=== PATIENT | male | born 1950 | race Caucasian/White ===

== ENCOUNTER 2018-06-26 12:33 | Inpatient (IN) ==
--- NOTE | 2018-06-26 13:50 | Emergency Department Note ---
ED Provider Note CHIEF COMPLAINT: Returning for admission HISTORY OF PRESENTING ILLNESS: This is a 67-year-old male who presents to the emergency department by private vehicle for admission. Patient was seen yesterday in the emergency department and was found to have lung mass and bilateral pulmonary emboli, he was recommended to be admitted at that time, ho wever he was unable to stay and reported that he would return to the emergency department for admission today, which he now does. He was treated with a dose of Lovenox yesterday prior to discharge. He denies any dizziness, syncope, chest pain, shortness of breath, hemoptysis, fevers or chills, abdominal pain, nausea or vomiting, urinary complaints, or unusual rash. He denies any abnormal bleeding or bruising. REVIEW OF SYSTEMS: A complete 10 point review of systems was reviewed with the patient with pertinent positives and negatives as per history of present illness. All else were negative. PAST MEDICAL HISTORY: CAD with [place] x2 and stent placement, hypertension, hyperlipidemia, emphysema, lung cancer, VATS with right upper lobectomy SOCIAL HISTORY: Lives at home, he is a current everyday smoker ALLERGIES: No known allergies PHYSICAL EXAM: CONSTITUTIONAL: Pleasant and cooperative. No acute distress. Well appearing and well nourished. HEENT: Normocephalic, atraumatic. PERRL, EOMI. Pharynx normal. NECK: Supple, full active range of motion without discomfort. RESPIRATORY: Diminished throughout with scant expiratory wheezes, otherwise clear to auscultation bilaterally with no crackles, rhonchi or stridor. Equal expansion bilaterally. CARDIOVASCULAR: Regular rate and rhythm with no murmurs, rubs or gallops. Normal peripheral perfusion. No edema. GASTROINTESTINAL: Soft, nontender, nondistended. No palpable masses or HSM. Bowel sounds present in all quadrants. MUSCULOSKELETAL: No leg pain or swelling. Negative Homans bilaterally. Full range of motion of all joints without discomfort. INTEGUMENTARY: No rash or other significant dermatologic conditions noted. NEUROLOGIC: Alert and oriented X 4 with normal affect. Normal strength and sensation in all 4 extremities. Normal speech. Normal gait observed. ED COURSE AND MEDICAL DECISION MAKING: CC: Patient presenting for admission DIFFERENTIAL DIAGNOSIS: Includes, but not limited to lung mass, PE, need for an ticoagulation INTERPRETATION OF LABS: No leukocytosis, mild anemia, normal platelets, no significant electrolyte abnormalities, normal renal function, coagulation factors within normal limits IMAGING: CTA CHEST IMPRESSION: 1. No central pulmonary embolus is identified. 2. There is trace nonocclusive thrombus identified within segmental branches of the right and left upper lobe pulmonary arteries. This is age indeterminant and may be chronic. 3. Emphysema and postoperative change from previous right-sided pulmonary resection. 4. There is an approximately 5.5 cm right apical mass lesion. This extends through the pleura, and causes erosive destruction of the right second rib, the right transverse processes of T1 and T2, and also invades the T1 and T2 vertebral bodies. This is consistent with a Pancoast tumor. 5. Additional small osteolytic metastatic lesions are seen within the bodies of T1 and T2. 6. There is approximately 6 x 3.5 cm left perihilar mass lesion which is also consistent with neoplasm. 7. There is diffuse peribronchial thickening with mucus plugging in the lower lobes. Correlate clinically for evidence of bronchitis/reactive airway disease. 8. There is extensive micronodular change seen at the right lung base. This could present metastatic disease versus an infectious/inflammatory pneumonitis. 9. There is no evidence of acute or pathologic fracture involving the thoracic spine. 10. There are are mildly enlarged mediastinal and right supraclavicular lymph nodes. Metastatic disease is not excluded. 11. Additional findings as above. MEDICATION RECONCILIATION: I attest that I have personally reviewed the patient's current medication list. INITIAL VITAL SIGNS REVIEW: I reviewed the patient's initial vital signs and interpret them as follows: T: Afebrile; BP: Normotensive; HR: Mildly tachycardic; RR: Within normal limit; Pulse Ox: Within normal limits on room air. Blood pressure screening: The patient was found to have normal blood pressure on screening and does not require follow-up for repeat blood pressure check. MDM SUMMARY: Patient was evaluated at bedside, history and physical exam performed. Patient is alert and oriented, no acute distress, resting calmly in stretcher. Exam is grossly unchanged from yesterday by my assessment. The patient has no complaints of chest pain or shortness of breath. He is hemodynamically stable. Orders were placed at bedside for labs, heparin drip standard with bolus to continue treatment for pulmonary emboli. Patient discussed with Dr. Ross, who agrees with my assessment, plan, and disposition. I spoke with Dr. Shaw, [facility] Hospitalist, who agrees to admit the patient. He will place consults. Patient was stable at time of admission. The chart was completed utilizing [employer] Speech voice recognition software. Grammatical errors, random word insertions, pronoun errors, and incomplete sentences are an occasional consequence of this system due to software limitat ions, ambient noise, and hardware issues. Any formal questions or concerns about the content, text, or information contained within the body of this dictation should be directly addressed to the nurse practitioner for clarification. Impression & Plan Lung mass, Bilateral pulmonary embolism Past Med/Surg History Social History Feels Safe at Home: Yes Smoking Status: Current every day smoker Results & Data Vital Signs Vital Signs - 24 hr 06/26/18 12:52 06/26/18 14:34 06/26/18 15:14 Temperature 36.7 C Temperature Source Oral Sepsis Recent Fever Within 48 Hours No Sepsis Action Taken by Nursing No Action Required Pulse Rate 100 H Pulse Rate [Left Finger] 89 87 Pulse Rhythm Regular Pulse Strength Normal Respiratory Rate 20 23 18 Respiratory Effort / Characteristics Non-Labored Spontaneous Non-Labored Non-Labored Respiratory Depth Normal Normal Normal Respiratory Pattern Regular Regular Regular Blood Pressure 105/69 Blood Pressure [Left Arm] 117/79 122/77 Blood Pressure Mean 81 Blood Pressure Mean [Left Arm] 91 92 Blood Pressure Position Sitting Blood Pressure Position [Left Arm] Pulse Oximetry 94 93 94 Oxygen Delivery Method Room Air Room Air Room Air 06/26/18 15:28 06/26/18 16:03 Temperature 36.7 C Temperature Source Oral Sepsis Recent Fever Within 48 Hours Sepsis Action Taken by Nursing Pulse Rate 83 Pulse Rate [Left Finger] 95 H Pulse Rhythm Pulse Strength Respiratory Rate 18 18 Respiratory Effort / Characteristics Respiratory Depth Respiratory Pattern Blood Pressure 122/77 Blood Pressure [Left Arm] 130/81 Blood Pressure Mean Blood Pressure Mean [Left Arm] 97 Blood Pressure Position Blood Pressure Position [Left Arm] Left Lateral Pulse Oximetry 94 92 Oxygen Delivery Method Room Air Room Air Laboratory Data Result diagrams: 06/26/18 14:26 06/26/18 14:26 Lab Results 06/26/18 06/26/18 06/26/18 Range/Units 14:26 14:26 14:26 WBC 6.59 (4.8-10.8) K/uL RBC 4.38 L (4.7-6.1) M/uL Hgb 13.9 L (14.0-18.0) g/dL Hct 39.5 L (42-52) % MCV 90.2 (80-100) fL MCH 31.7 (25-34) pg MCHC 35.2 (32-36) g/dL RDW Std Deviation 42.0 (36.4-46.3) fL RDW Coeff of Mark 12.8 (11.5-14.5) % Plt Count 172 (130-400) K/uL MPV 11.0 H (7.4-10.4) fL Immature Gran % (Auto) 0.3 % Neut % (Auto) 68.6 % Lymph % (Auto) 17.6 % Briscoe % (Auto) 9.9 % Eos % (Auto) 3.3 % Baso % (Auto) 0.3 % Immature Gran # (Auto) 0.02 (0.00-0.02) K/uL Neut # (Auto) 4.52 (1.4-6.5) K/uL Lymph # (Auto) 1.16 L (1.2-3.4) K/uL Briscoe # (Auto) 0.65 H (0.11-0.59) K/uL Eos # (Auto) 0.22 (0-0.5) K/uL Baso # (Auto) 0.02 (0-0.2) K/uL PT 10.7 (9.0-12.0) Seconds INR 1.0 (0.9-1.1) APTT 26.2 (21.0-31.0) Seconds PTT Ratio 1.0 Sodium 141 (136-145) mmol/L Potassium 3.9 (3.5-5.1) mmol/L Chloride 105 (98-107) mmol/L Carbon Dioxide 29 (21-32) mmol/L Anion Gap 7.0 (3-11) BUN 13 (7-18) mg/dl Creatinine 1.03 (0.6-1.4) mg/dl Est Cr Clr Drug Dosing 70.5 ml/min Est GFR ( Amer) 87.3 Est GFR (Non-Af Amer) 75.3 BUN/Creatinine Ratio 12.3 (10-20) Glucose 102 H (70-99) mg/dl Calcium 8.8 (8.5-10.1) mg/dl Administered Medications Nicotine (Nicoderm Cq) 21 mg TD QAM CAPRICE Stop: 07/26/18 13:59 Last Admin: 06/26/18 15:08 Dose: 21 mg Documented by: [id number] Discontinued Medications Heparin Sodium (Porcine) (Heparin Sodium (Porcine)) Confirm Administered Dose 10,000 units .ROUTE .STK-MED ONE Stop: 06/26/18 15:00 Last Admin: 06/26/18 15:09 Dose: Not Given Documented by: [id number] Heparin Sodium (Porcine) (Heparin Iv Bolus) Confirm Administered Dose 10,000 units .ROUTE .STK-MED ONE Stop: 06/26/18 15:02 Last Admin: 06/26/18 15:06 Dose: 6,000 units Documented by: [id number] Cosigned by: [id number] Heparin Sodium/Dextrose () 1 ea IV NOW STA; Protocol Stop: 06/26/18 13:50 Last Admin: 06/26/18 15:07 Dose: 1 ea Documented by: [id number] Heparin Sodium/Dextrose (Heparin Sodium/Dextrose) Confirm Administered Dose 25,000 units IV .STK-MED ONE Stop: 06/26/18 14:54 Last Admin: 06/26/18 15:05 Dose: 1,350 units Documented by: [id number] Cosigned by: [id number] Oxycodone HCl (Roxicodone Immediate Rel) 5 mg PO NOW STA Stop: 06/26/18 13:54 Last Admin: 06/26/18 15:08 Dose: 5 mg Documented by: [id number] Discharge Plan Visit Data *Final* Discharge Date/Time: 06/26/18 15:28 Chief Complaint: Referred by Doctor Stated Complaint: REFERRED BY MIN JUAREZ ED Provider: Melanie Ross ED Midlevel Provider: Catina Valdivia Discharge Problem: Lung mass, Bilateral pulmonary embolism Patient Disposition: Admitted As Inpatient Condition: Good Discharge Instructions Interventions: ED Discharge Assessment Last Done: 06/26/18 15:28
[2018-06-26] MEDS ORDERED: OXYCODONE HCL IR 5 MG TAB (IMMEDIATE RELEASE) PO STA (13:53)
--- NOTE | 2018-06-26 14:00 | History & Physical Report ---
Date of Service June 26, 2018 Assessment & Plan (1) Lung mass: 67 y/o M Hx Lung CA 2009, recurrence 2013 - RLLL resection/chemo/radiation, CAD ND x 2 2008, HTN, HLD, COPD, smoker. Presents with R shoulder pain which was somewhat pleuritic in nature. Due to his history, a CTA was obtained and demonstrated peripheral PEs, likely recurrence of CA with a Pancoast tumor, erosion into the 2nd rib, pleura and thoracic spine. the pt denies CP or SOB. Labs are unremarkable. 1) Lung mass - likely recurrence of CA with extensive invasion into surrounding structures. We will consult pulmonary and he will need follow-up with oncology. 2) PEs - placed on BID Lovenox - may hold PM dose for bronch pending discussion with pulm 3) CAD - no evidence of ACS - Cont ASA, Plavix, Carvedilol, Pravastatin 4) COPD - cont Breo, Albuterol - no evidence of exacerbation 5) Smoker - does not display interest in cessation Full code - full dose Lovenox Total time for this admit including review of labs, meds, imaging, records - discussion with pt and ER attending 38 min (2) Bilateral pulmonary embolism: History of Present Illness Chief Complaint: lung mass, PEs, shoulder pain Primary Care Provider: ABISAI SCHERER 67 y/o M Hx Lung CA 2009, recurrence 2013 - RLLL resection/chemo/radiation, CAD ND x 2 2008, HTN, HLD, COPD, smoker. Presents with R shoulder pain which was somewhat pleuritic in nature. Due to his history, a CTA was obtained and demonstrated peripheral PEs, likely recurrence of CA with a Pancoast tumor, erosion into the 2nd rib, pleura and thoracic spine. the pt denies CP or SOB. Labs are unremarkable. The pt had presented to the hospital one day prior and had requested DC to take care of his mother. He stated he would return today. He was provided with 1.5mg/kg of Lovenox and DCd. He has returned for admission and further workup. PMH: 1) Adenocarcinoma of R lung. Initial lesion 2009 R upper lobe - treated with resection?VATS RU lobectomy, chemo, radiation. Recurrence in RLL 2012 treated with chemo and radiation. 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 Family: Father due to cerebral aneurysm Mother is alive history of ND x 2 and DM Family Allergies Allergy/AdvReac Type Severity Reaction Status Date / Time No Known Allergies Allergy Unverified 06/25/18 12:05 Home Medications Home Medications Medication Instructions Recorded Confirmed Type citalopram 20 mg PO DAILY #0 11/06/09 06/25/18 History clopidogrel 75 mg PO DAILY #0 12/25/09 06/25/18 History carvedilol 6.25 mg PO BID #0 tab 02/28/12 06/25/18 History ondansetron HCl 8 mg PO BID PRN #0 tab 06/11/12 06/25/18 History albuterol sulfate 2 puff INHALATION TID #0 06/28/12 06/25/18 History fluticasone furoate-vilanterol 1 inh INHALATION DAILY 06/25/18 06/25/18 History [Breo Ellipta] pravastatin 20 mg PO DAILY 06/25/18 06/25/18 History Past Med/Surg History Social History Feels Safe at Home: Yes Smoking Status: Current every day smoker Review of Systems Review of Systems: Gen: Denies fevers, night sweats, rigors, fatigue, malaise, weight loss/gain ENT: Denies congestion, throat pain, hearing loss Eyes: Denies acute visual changes CV: Denies CP, palpitations Pulmonary: Denies SOB, cough, wheezing - pleuritic component to shoulder pain GI: Denies N/V, diarrhea, constipation Neuro: Denies acute or unilateral weakness, acute gait impairment, headache or acute visual changes Musculoskeletal: Denies joint pain, inflammation Endocrine: Denies polydipsia, polyuria Skin: Denies acute rashes or ulcers Physical Exam Physical Exam: General: AAO x 3, no distress ENT: No erythema or exudates, no thrush Eyes: MEGHANN, EOMI Head and neck: Normocephalic, atraumatic, No JVD, neck is supple. there may be some developing ptosis on the R. Chest/heart: Nontender, S1,2, RRR, no murmurs, no gallops Lungs: Poor air movement with slight end-expiratory wheezing Abdomen: Nontender, nondistended, BS+ Neuro: AAO x 3, speech is clear, no unilateral weakness or loss of sensation, coordination intact Musculoskeletal: No joint inflammation, muscle tenderness, FROM Skin: No acute rashes or ulcers Extremities: No clubbing, cyanosis, edema Results & Data Vital Signs (Past 12 Hours) Vital Signs Temp Pulse Resp BP Pulse Ox 06/26/18 12:52 98.1 F 100 H 20 105/69 94 Diagnostic Findings CTA: 1. No central pulmonary embolus is identified. 2. There is trace nonocclusive thrombus identified within segmental branches of the right and left upper lobe pulmonary arteries. This is age indeterminant and may be chronic. 3. Emphysema and postoperative change from previous right-sided pulmonary resection. 4. There is an approximately 5.5 cm right apical mass lesion. This extends through the pleura, and causes erosive destruction of the right second rib, the right transverse processes of T1 and T2, and also invades the T1 and T2 vertebral bodies. This is consistent with a Pancoast tumor. 5. Additional small osteolytic metastatic lesions are seen within the bodies of T1 and T2. 6. There is approximately 6 x 3.5 cm left perihilar mass lesion which is also consistent with neoplasm. 7. There is diffuse peribronchial thickening with mucus plugging in the lower lo bes. Correlate clinically for evidence of bronchitis/reactive airway disease. 8. There is extensive micronodular change seen at the right lung base. This could present metastatic disease versus an infectious/inflammatory pneumonitis. 9. There is no evidence of acute or pathologic fracture involving the thoracic spine. 10. There are are mildly enlarged mediastinal and right supraclavicular lymph nodes. Metastatic disease is not excluded. 11. Additional findings as above.
[2018-06-26 14:49] LABS: Basophils # (auto) 0.02 K/uL (0-0.2); Basophils % (auto) 0.3 %; Eosinophils # (auto) 0.22 K/uL (0-0.5); Eosinophils % (auto) 3.3 %; Hematocrit (blood only) 39.5 % (42-52); Hemoglobin 13.9 g/dL (14.0-18.0); Immature Granulocytes # (auto) 0.02 K/uL (0.00-0.02); Immature Granulocytes % (auto) 0.3 %; Lymphocytes # (auto) 1.16 K/uL (1.2-3.4); Lymphocytes % (auto) 17.6 %; Mean Corpuscular Hgb Conc 35.2 g/dL (32-36); Mean Corpuscular Volume 90.2 fL (80-100); Monocytes # (auto) 0.65 K/uL (0.11-0.59); Monocytes % (auto) 9.9 %; Neutrophils # (auto) 4.52 K/uL (1.4-6.5); Neutrophils % (auto) 68.6 %; Platelet Count 172 K/uL (130-400); RDW Coefficient of Variation 12.8 % (11.5-14.5); Red Blood Count 4.38 M/uL (4.7-6.1); White Blood Count 6.59 K/uL (4.8-10.8)
[2018-06-26] MEDS ORDERED: HEPARIN 25000 UNIT/500 ML D5W IV ONE (14:53)
[2018-06-26] MEDS ORDERED: HEPARIN SOD 5,000 UNIT/0.5 ML VIAL ONE (14:59)
[2018-06-26] MEDS ORDERED: HEPARIN SOD (PORCINE) 1000 UNIT/ML 10 ML VIAL ONE (15:01)
[2018-06-26 15:07] LABS: Partial Thromboplastin Time 26.2 Seconds (21.0-31.0); Prothrombin Time 10.7 Seconds (9.0-12.0)
[2018-06-26] MEDS: NICOTINE 21 MG/24 HR TDSY TD SCH (15:08)
[2018-06-26 15:09] LABS: BUN Creatinine Ratio 12.3 (10-20); Calcium 8.8 mg/dl (8.5-10.1); Creatinine Clr Calc Pharmacy 70.5 ml/min; Est GFR (African American) 87.3; Est GFR (Non-African American) 75.3; Potassium 3.9 mmol/L (3.5-5.1)
[2018-06-26] MEDS ORDERED: POLYETHYLENE (MIRALAX) 17 GM PACK PO PRN (16:03)
[2018-06-26] MEDS ORDERED: ONDANSETRON INJ 2 MG/ML 2 ML VIAL IV PRN (16:03)
[2018-06-26] MEDS ORDERED: Heparin IV Standard *NO* Bolus IV SCH (16:03)
[2018-06-26] MEDS ORDERED: ACETAMINOPHEN 325 MG TAB PO PRN (16:03)
[2018-06-26] MEDS ORDERED: ZOLPIDEM TARTRATE 5 MG TAB PO PRN (16:03)
[2018-06-26] MEDS ORDERED: ALUMINUM/MAGNESIUM SUSP 30 ML UDC PO PRN (16:03)
[2018-06-26] MEDS ORDERED: MAGNESIUM HYDROXIDE SUSP 30 ML UDC PO PRN (16:03)
[2018-06-26] MEDS ORDERED: ALBUT/IPRATROP 3MG/0.5MG NEB 3 ML VIAL NEB PRN (17:42)
[2018-06-26] MEDS: HEPARIN SODIUM/DEXTROSE 25,000 UNITS/500 ML BAG IV SCH (19:02)
[2018-06-26] MEDS: D5W AND LACTATED RINGERS 1,000 ML IV SCH (19:03)
[2018-06-26] MEDS: ALBUT/IPRATROP 3MG/0.5MG NEB 3 ML VIAL NEB SCH (19:45)
[2018-06-26] MEDS ORDERED: ALBUTEROL HFA 8 GM INHALER INH SCH (21:00)
[2018-06-26 21:39] LABS: Partial Thromboplastin Ratio 2.7
[2018-06-26 21:43] LABS: Partial Thromboplastin Time 72.3 Seconds (21.0-31.0)
[2018-06-26] MEDS: OXYCODONE HCL IR 5 MG TAB (IMMEDIATE RELEASE) PO PRN (22:05)
[2018-06-26] MEDS: methylPREDNISolone 40 MG in SYRINGE 0 ML IV SCH (22:06)
[2018-06-26] MEDS: CARVEDILOL 6.25 MG TAB PO SCH (22:06)
--- NOTE | 2018-06-27 01:00 | Consultation Report ---
DATE OF CONSULTATION: 06/26/2018 DATE OF CONSULT: 06/26/2018 TIME: 5:15 p.m. REPORT OF CONSULTATION: The patient was seen in room 285, bed 2. He is a 67-year-old male who yesterday came to the Emergency Room with a complaint of severe pain in the right shoulder and back areas. He had been having pain for a couple of months. At one point in time, he thought it was more on the left side, then subsequently on the right side. The pain was quite severe. Some of the pain radiated anterior into the chest. It seemed to be a little worse taking a deep breath. Pertinent history is that in 2010, he had a right upper lobectomy performed for a nonsmall cell carcinoma. There was a 5 cm lesion reportedly and also a smaller one measuring 0.7. When he was seen in the Emergency Room yesterday, a CT angio of the chest was done. This showed evidence of small nonocclusive thrombus in the segmental branches of the right and left upper lobe pulmonary arteries. It was unclear if this was acute or chronic, though it could be chronic. Emphysema was noted. Postoperative changes were noted from the prior right-sided lung resection. There is a 5.5 cm right apical mass lesion that extends through the pleura causing erosive destruction of the right second rib and the right transverse processes of T1 and T2 and also with invasion of T1 and T2 vertebral bodies. In addition, there was a 6 cm x 3.5 cm left perihilar mass suspicious for neoplasm. Peribronchial thickening and mucus was noted in the lower lobes. There were micronodular changes seen at the right lung base, questionable inflammatory versus neoplastic. There was mildly enlarged mediastinal and right supraclavicular lymph node. The patient overall seems well despite the above findings. He states his appetite is good. He denies weight loss. Energy level has been decreased somewhat. He admits to being short of breath chronically, but he has not noticed a major change. He has not had any chills, fevers or sweats. Denies bowel complaints or urine complaints. PAST MEDICAL HISTORY: 1. COPD. 2. Adenocarcinoma of the lung. 3. Status post right upper lobectomy. 4. Obstructive sleep apnea -- not being treated. 5. Prior RI. 6. BPH. 7. Depression. 8. Hypertension. 9. Peripheral arterial disease to the left leg. PAST SURGICAL HISTORY: 1. Cardiac stents 2013. 2. Right thoracotomy as noted. SOCIAL HISTORY: Tobacco: Currently 1/2 pack per day. He typically smoked 1-1/2 to 2 packs per day from the ages of 19 until 67. Alcohol use is described as none presently. Previously, he states he was a social drinker. 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 ALLERGIES: No known allergies. MEDICATIONS AT HOME: 1. Albuterol inhaler p.r.n. 2. Carvedilol 6.25 b.i.d. 3. Citalopram 20 mg daily. 4. Clopidogrel 75 mg daily -- last dose on 06/25/2018. 5. Breo Ellipta 1 puff daily. 6. Ondansetron p.r.n. 7. Pravastatin 20 mg daily. REVIEW OF SYSTEMS: Negative, except as noted in history of present illness. Ten systems reviewed. PHYSICAL EXAMINATION: VITAL SIGNS: The patient is a 67-year-old male who was cooperative, alert and oriented. He was in no distress. Weight is 78.5 kilograms. BMI 25.6. HEENT: Pupils were reactive to light. Nares were clear. Mouth exam showed an absence of teeth. He has significant facial hair. No lymph nodes palpable. CARDIAC: Rate 95 per minute. Rhythm is regular. Blood pressure 130/81. LUNGS: Auscultation of the lung david reveals diffuse wheeze and rhonchi posteriorly bilaterally. Saturation on room air 92%. Respiratory rate 18. ABDOMEN: Soft. Bowel sounds were normal. No tenderness to palpation, masses or organomegaly. EXTREMITIES: Showed no cyanosis, clubbing or edema. LABORATORY DATA: White count of 6.59. Hemoglobin 13.9. Platelets 172,000. Coags are normal. Electrolytes show sodium 141, potassium 3.9, chloride 105, bicarb 29. BUN 13 with a creatinine 1.03. EKG done yesterday showed sinus rhythm. There are Q-waves in the inferior leads, cannot exclude prior RI. Anterior RI reported. IMPRESSION: 1. Mass, right upper lung and left hilum -- suspicious for malignancy. 2. History of lung carcinoma -- status post right upper lobectomy. 3. Bone metastasis. 4. Mediastinal adenopathy. 5. Pulmonary embolism -- questionable acute versus chronic. 6. Chronic obstructive pulmonary disease. COMMENTS AND RECOMMENDATIONS: The patient has significant bronchospasm. I believe he should have neb treatments with ipratropium/albuterol 4 times daily. I also feel we should have IV steroids at this point. He will be needing a biopsy procedure. Dr. Marrufo has been consulted. I would anticipate an EBUS and a navigational bronchoscopy. We want to improve his breathing as much as possible. Would continue the heparin for now until his procedure is over. It can be held for several hours before the procedure. The patient had 3 sisters who were present. This scenario was discussed with them as well as with the patient himself. Thankfully, he is feeling some improvement in his pain. Not mentioned previously is that the patient refused to be admitted yesterday because he had to care for his mom. He was given Lovenox last evening, but did come back to the Emergency Room today as he indicated he would. I have discussed the case with Dr. Shaw as well as with Dr. Marrufo.
--- NOTE | 2018-06-27 01:36 | Consultation Report ---
DATE OF CONSULTATION: 06/26/2018 REASON FOR CONSULTATION: Apparent metastatic lung cancer. HISTORY OF PRESENT ILLNESS: Very nice 67-year-old male who underwent a right thoracotomy with right upper lobectomy back in 2010. The patient had some right shoulder pain and also been a bit more short of breath over the last few months and presented to the Emergency Room yesterday and was noted to have a mass which was causing bone destruction in his right apex which included his vertebral body of the spine. He also has what appears to be an ugly looking lesion in his left hilum, particularly in the lower lobe and frankly he does not have much in the way of lymphadenopathy. I was asked to see the patient as a diagnosis will be required. He is also found to have what appeared to be very small pulmonary emboli distally. It is unclear whether these are acute or chronic. The patient has awfully few symptoms other than his right shoulder pain from this. He does not complain of any back pain or radicular pain despite the destruction of his T1 and T2 transverse processes and vertebral bodies. I have been asked to evaluate and wait him for tissue diagnosis. He does have a small supraclavicular lymph node on the right, but it is not palpable. PAST MEDICAL HISTORY: 1. History of nonsmall cell lung carcinoma, right upper lobe. 2. Active cigarette smoking (47 years of cigarette smoking). He states that he has cut back in the last few days but had a cigarette this morning. 3. Coronary artery disease. 4. Chronic obstructive pulmonary disease. 5. Hyperlipidemia. 6. Depression. PAST SURGICAL HISTORY: 1. Right thoracotomy, right upper lobectomy in 2010. 2. Percutaneous transluminal angioplasty with a stent placement. MEDICATIONS: 1. Citalopram. 2. Pravastatin. 3. Breo Ellipta. 4. Plavix. 5. Carvedilol. 6. Zofran. 7. Albuterol. ALLERGIES: No known drug allergies. FAMILY MEDICAL HISTORY: The patient's father at 62 from cerebral aneurysm and mother is still alive at 84, but has suffered a cancer of unknown origin, also has poorly controlled diabetes. The patient had a brother who was 17 when he was killed in a car accident. He has 4 sisters and he feels they are all healthy. He has 1 child who is healthy and 3 grandchildren that are healthy. SOCIAL HISTORY: The patient smokes every day. 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 He does not use alcohol. REVIEW OF SYSTEMS: The patient states his weight has been relatively stable. He has had a cough productive of clear sputum. He denies hemoptysis. His only pain is in his right shoulder. He also states that over the last 6 months, he has become more short of breath and has dyspnea on exertion. He denies night sweats. He denies any GI or complaints. He denies any neurologic symptoms such as amaurosis fugax or transient ischemic attack. In particular, he has no radicular symptoms from his T1 and T2 vertebral body involvement. The patient denies any change in his hearing or visual acuity. He does have claudication in his left lower extremity and did undergo percutaneous transluminal angioplasty several years ago at [place] in the left lower leg but the symptoms have recurred. He does not have rest pain. He denies palpitations. He has had no skin breakdown. PHYSICAL EXAMINATION: GENERAL: He is 5 feet 9 inch and 170 pound male who is awake, alert and oriented. HEENT: Extraocular movements are intact. Pupils are equal, round, reactive. Sclerae are anicteric. Tongue is midline. He has no oral mucosal lesions. NECK: Supple. I do not detect supraclavicular lymph nodes. In particular, I did not feel this on the right. He has no carotid bruits, neck vein distention. I detect no cervical or axillary adenopathy. LUNGS: He has diffuse wheezing bilaterally. He has no rales. HEART: He has a regular rate and rhythm of his heart with distant heart sounds. ABDOMEN: Flat, soft, nontender. EXTREMITIES: Upon evaluation of his lower extremities, I cannot palpate pulses in his left foot, but he has a faint posterior tibialis on the right. His feet are equally warm and well perfused. He has no edema or joint effusions. NEUROLOGIC: He is completely intact. Cranial nerves II-XII are intact. ASSESSMENT AND PLAN: Probable widely metastatic stage IV nonsmall cell lung carcinoma. I do not really see a good area to put a needle. I will review this with Radiology, but I believe an endobronchial ultrasound and navigational bronchoscopy would be best. We will get this set up for 06/28/2018. He took Plavix yesterday and currently on heparin for his pulmonary emboli but we can stop that tomorrow. We will plan on doing this to get a diagnosis on .
[2018-06-27] MEDS: OXYCODONE HCL IR 5 MG TAB (IMMEDIATE RELEASE) PO PRN ×4 (04:06→23:14)
[2018-06-27 04:33] LABS: Partial Thromboplastin Ratio 2.5
[2018-06-27 04:37] LABS: Partial Thromboplastin Time 66.9 Seconds (21.0-31.0)
[2018-06-27] MEDS: methylPREDNISolone 40 MG in SYRINGE 0 ML IV SCH ×2 (06:18→18:39)
[2018-06-27] MEDS: ALBUT/IPRATROP 3MG/0.5MG NEB 3 ML VIAL NEB SCH ×4 (07:13→19:35)
[2018-06-27] MEDS: D5W AND LACTATED RINGERS 1,000 ML IV SCH (07:54)
[2018-06-27] MEDS: CARVEDILOL 6.25 MG TAB PO SCH ×2 (07:54→20:48)
[2018-06-27] MEDS: PRAVASTATIN SOD 20 MG TAB PO SCH (07:54)
[2018-06-27] MEDS: CITALOPRAM 20 MG TAB PO SCH (07:54)
[2018-06-27] MEDS: NICOTINE 21 MG/24 HR TDSY TD SCH (08:10)
--- NOTE | 2018-06-27 09:14 | Anesthesiology Consultation ---
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 Surgery Operation Date: 06/28/18 14:20 Proposed Procedures p Endobronchial Ultrasound - Nhan Marrufo MD, FACS s Bronchoscopy Navigational - Nhan Marrufo MD, FACS Height/Weight Height: 5 ft 9 in Weight: 75.7 kg Allergies Allergy/AdvReac Type Severity Reaction Status Date / Time No Known Allergies Allergy Unverified 06/25/18 12:05 Medications Home Medications Medication Instructions Recorded Confirmed Last Taken citalopram 20 mg PO DAILY #0 11/06/09 06/26/18 06/26/18 clopidogrel 75 mg PO DAILY #0 12/25/09 06/26/18 06/25/18 carvedilol 6.25 mg PO BID #0 tab 02/28/12 06/26/18 06/26/18 ondansetron HCl 8 mg PO BID PRN #0 tab 06/11/12 06/26/18 Unknown albuterol sulfate 2 puff INHALATION TID #0 06/28/12 06/26/18 06/26/18 fluticasone furoate-vilanterol 1 inh INHALATION DAILY 06/25/18 06/26/18 06/26/18 [Breo Ellipta] pravastatin 20 mg PO DAILY 06/25/18 06/26/18 06/26/18 Active Medications Generic Name Dose Route Start Last Admin Trade Name Freq PRN Reason Stop Dose Admin Albuterol 3 ml 06/26/18 20:00 06/27/18 11:11 Duoneb NEB 07/26/18 19:59 3 ml QIDR CAPRICE Administration Carvedilol 6.25 mg 06/26/18 21:00 06/27/18 07:54 Coreg PO 07/26/18 20:59 6.25 mg BID CAPRICE Administration Citalopram Hydrobromide 20 mg 06/27/18 09:00 06/27/18 07:54 Celexa PO 07/27/18 08:59 20 mg DAILY CAPRICE Administration Dextrose/Lactated Ringer's 1,000 mls @ 80 mls/hr 06/26/18 16:00 06/27/18 07:54 D5w And Lactated Ringers IV 06/27/18 16:59 80 mls/hr .[id number] CAPRICE Administration Methylprednisolone 40 mg/ 0.64 mls @ 1.5 mls/min 06/26/18 18:00 06/27/18 06:18 Syringe IV 07/26/18 17:59 1.5 mls/min Q12H CAPRICE Administration Heparin Sodium/Dextrose 25,000 units in 500 mls @ 25 mls/hr 06/26/18 18:00 06/27/18 09:21 Heparin Sodium/Dextrose IV 07/26/18 17:59 1,250 units/hr .Q20H CAPRICE 25 mls/hr Administration Protocol 1,250 UNITS/HR Miscellaneous 1 ea 06/26/18 21:00 06/26/18 22:05 Remove Nicoderm Patch N/A 07/26/18 20:59 Not Given HS CAPRICE Miscellaneous 1 ea 06/27/18 00:00 06/27/18 07:46 Order Awaiting Action N/A 07/27/18 00:00 Not Given QS CAPRICE Nicotine 21 mg 06/26/18 14:00 06/27/18 08:10 Nicoderm Cq TD 07/26/18 13:59 21 mg QAM CAPRICE Administration Oxycodone HCl 5 mg 06/26/18 21:40 06/27/18 10:42 Roxicodone Immediate Rel PO 07/10/18 21:39 5 mg Q6H PRN Administration Pain Pravastatin Sodium 20 mg 06/27/18 09:00 06/27/18 07:54 Pravachol PO 07/27/18 08:59 20 mg DAILY CAPRICE Administration Past Medical History Medical History Lung mass (Acute) Bilateral pulmonary embolism (Acute) COPD (chronic obstructive pulmonary disease) Chronic pain Coronary artery disease Depression Dyslipidemia HTN (hypertension) Ischemic cardiomyopathy Myocardial infarct, old Paroxysmal atrial fibrillation Peripheral vascular disease Past Surgical History Surgical History S/P cardiac catheterization S/P lobectomy of lung Social History Smoking Status: Current every day smoker tobacco type: cigarettes Do You Dip or Chew Tobacco: No Hx Alcohol Use: No Hx Substance Use: No Physical Exam Vital Signs Last Vital Signs Temp 97.7 F 06/27/18 08:18 Pulse 79 06/27/18 08:18 Resp 20 06/27/18 08:18 BP 133/81 06/27/18 08:18 Pulse Ox 90 05/08/19 08:18 Testing Electrocardiogram Date: 06/25/18 Normal sinus rhythm Possible Inferior infarct (cited on or before 06-NOV-2009) Anterior infarct (cited on or before 06-NOV-2009) When compared with ECG of 28-FEB-2012 11:59, No significant change was found Confirmed by Kj Garcia ([id number]) on 06/26/2018 2:32:03 PM Echocardiogram Date: 07/04/17 EF: 30-35% Moderately decreased EF. Anterior and apical severe hypokinesis with the remaining segments having mild global hypokinesis. Normal right ventricular size with normal function. Normal left atrium. Normal right atrium. Trileaflet aortic valve. There is no aortic regurgitation. There is mild mitral regurgitation. The mitral valve is thickened. There is trace tricuspid regurgitation. Normal PA pressure. There is mild pulmonic regurgitation. Normal aorta. Other Testing Chest CTA 06/25/18 1. No central pulmonary embolus is identified. 2. There is trace nonocclusive thrombus identified within segmental branches of the right and left upper lobe pulmonary arteries. This is age indeterminant and may be chronic. 3. Emphysema and postoperative change from previous right-sided pulmonary resection. 4. There is an approximately 5.5 cm right apical mass lesion. This extends through the pleura, and causes erosive destruction of the right second rib, the right transverse processes of T1 and T2, and also invades the T1 and T2 vertebral bodies. This is consistent with a Pancoast tumor. 5. Additional small osteolytic metastatic lesions are seen within the bodies of T1 and T2. 6. There is approximately 6 x 3.5 cm left perihilar mass lesion which is also consistent with neoplasm. 7. There is diffuse peribronchial thickening with mucus plugging in the lower lobes. Correlate clinically for evidence of bronchitis/reactive airway disease. 8. There is extensive micronodular change seen at the right lung base. This could present metastatic disease versus an infectious/inflammatory pneumonitis. 9. There is no evidence of acute or pathologic fracture involving the thoracic spine. 10. There are are mildly enlarged mediastinal and right supraclavicular lymph nodes. Metastatic disease is not excluded. MUGA Scan 10/19/17 Severe diffuse hypokinesis of LV with EF 32%. Right ventricle has normal contractibility. Laboratory Results 06/26/18 14:26 06/26/18 14:26 PT 10.7 Seconds (9.0-12.0) 06/26/18 14:26 INR 1.0 (0.9-1.1) 06/26/18 14:26 APTT 66.9 Seconds (21.0-31.0) H* 06/27/18 03:59
[2018-06-27] MEDS: HEPARIN SODIUM/DEXTROSE 25,000 UNITS/500 ML BAG IV SCH (09:21)
[2018-06-27 11:13] LABS: Partial Thromboplastin Ratio 2.5
[2018-06-27 11:16] LABS: Partial Thromboplastin Time 66.6 Seconds (21.0-31.0)
--- NOTE | 2018-06-27 11:34 | Progress Note ---
DATE: 06/27/2018 PULMONARY PROGRESS NOTE TIME: 11:00 a.m. SUBJECTIVE: The patient currently is having an anxiety attack. He states it began about 10 minutes before I came into the room. He indicates that he gets these periodically. It may be exacerbated also by him being in a small room with limited ambulation. It also may be exacerbated by being on steroids that were started yesterday. He did indicate he has had prednisone in the past without any problem. He claims that he did not sleep at all last night. OBJECTIVE: GENERAL: The patient was obviously anxious. He was cooperative, alert and oriented. VITAL SIGNS: Temperature is 36.5. Cardiac rate 100 per minute. Rhythm regular. Blood pressure 133/81. LUNGS: Auscultation of the lung david reveals improvement in the wheeze and rhonchi heard yesterday. There is still end-expiratory wheezing heard. He indicates that his cough is diminished today and he did not cough during this exam. Saturation on room air was 92%. ABDOMEN: Soft and nontender. EXTREMITIES: Showed no cyanosis, clubbing or edema. LABORATORY DATA: PTT at 4:00 a.m. today was 66.9. Electrolytes today are normal. BUN and creatinine are normal. IMPRESSION: 1. Mass, right upper lung and left hilum. 2. History of lung carcinoma - status post right upper lobectomy. 3. Chronic obstructive pulmonary disease. 4. Bilateral pulmonary emboli - small. 5. Bone mets. 6. Mediastinal adenopathy. COMMENTS AND RECOMMENDATIONS: If the patient's anxiety level worsens, would consider decreasing dose of steroids. It is possible he may need a mild antianxiety agent. He is, however, already on Citalopram. He is also getting oxycodone about every 6 hours, which he finds to be palliative for his pain. Thus, would need some caution with antianxiety agents. He is also wondering if he could have some nicotine withdrawal even though he has the Nicoderm patch on. Dr. Marrufo is planning on doing a bronchoscopy tomorrow.
[2018-06-27] MEDS ORDERED: ALPRAZolam 0.25 MG TABLET PO STA (12:39)
[2018-06-27] MEDS ORDERED: ALPRAZolam 0.25 MG TABLET ONE (13:05)
--- NOTE | 2018-06-27 20:07 | Surgery Progress Note ---
Date of Service June 27, 2018 Assessment & Plan (1) Lung mass: -tomorrow Dr. Marrufo is planning on performing an EBUS and ENB with biopsies -consent is on chart Subjective Pt. notes he generally feels well but is quite anxious about his current hospitalization. Physical Exam Respiratory: normal respiratory effort; no respiratory distress and no labored breathing Results & Data Vital Signs (Past 12 Hours) Vital Signs Temp Pulse Resp BP Pulse Ox 06/27/18 19:44 36.5 C 101 H 18 126/81 94 06/27/18 19:35 103 H 16 95 06/27/18 15:11 36.5 C 84 20 113/72 92 06/27/18 14:55 85 16 90 06/27/18 11:12 36.2 C L 101 H 16 107/77 91 06/27/18 11:11 61 91 06/27/18 08:18 36.5 C 79 20 133/81 90
--- NOTE | 2018-06-27 21:36 | Hospitalist Progress Note ---
Date of Service June 27, 2018 Assessment & Plan (1) Bilateral pulmonary embolism: Small segmental PEs on CT. Likely asymptomatic from these. Currently on heparin drip. At discharge consider novel agent. Present on Admission?: Yes (2) Lung mass: RUL pancoast tumor. Additional tumor seen in the left perihilar region. Highly concerned for cancer given his prior history of lung ca. NPO after MN for bronch with biopsy tomorrow. Appreciate pulmonary and thoracic surgery consults. Present on Admission?: Yes (3) COPD with exacerbation: Improved. Cont IV solumedrol - can likely transition to PO steroids tomorrow. Cont nebs, inhalers, etc. Present on Admission?: Yes (4) CAD (coronary artery disease): No ischemic symptoms at this time. Continue coreg, statin. Should be on aspirin therapy as well. (5) Right shoulder pain: Referred pain from the RUL pancoast tumor. Pain improved today likely due to steroids. Follow. (6) Anxiety: xanax prn. (7) Tobacco use disorder: Counseled to quit. Nicoderm patch daily. Subjective patient feels better today. less cough. can take larger breaths. not as wheezy. good appetite. right shoulder / neck pain improved today. some pain under the right axillary area. Review of Systems Constitutional: no fever Respiratory: no hemoptysis and no sputum production Cardiovascular: no chest pain Gastrointestinal: no abdominal pain, no nausea and no vomiting Physical Exam Constitutional: no acute distress and not ill appearing ENMT: external ear and nose normal, oropharynx normal Mouth: + dentition abnormality (poor dentition) Respiratory: normal respiratory effort; no labored breathing Auscultation: + diminished lung sounds (right upper lobe) and + wheezes Cardiovascular: Rate/Rhythm: regular rate and regular rhythm Heart Sounds: normal S1 and normal S2; no murmur Vessels: posterior tibial pulses present and dorsalis pedis pulses present; no JVD Gastrointestinal (Abdomen): normal bowel sounds, soft, nontender, no hepatosplenomegaly Psychiatric: A+Ox3, euthymic affect Results & Data Vital Signs (Past 12 Hours) Vital Signs Temp Pulse Resp BP Pulse Ox 06/27/18 19:44 36.5 C 101 H 18 126/81 94 06/27/18 19:35 103 H 16 95 06/27/18 15:11 36.5 C 84 20 113/72 92 06/27/18 14:55 85 16 90 06/27/18 11:12 36.2 C L 101 H 16 107/77 91 06/27/18 11:11 61 91 Laboratory Results Laboratory Results - last 24 hr 06/27/18 06/27/18 03:59 10:36 APTT 66.9 H* 66.6 H* PTT Ratio 2.5 2.5 (1) CAD (coronary artery disease) Coronary Disease-Associated Artery/Lesion type: [place] artery [place] vs. transplanted heart: [place] heart Associated angina: without angina Qualified Code(s): I25.10 - Atherosclerotic heart disease of [place] coronary artery witho ut angina pectoris (2) Right shoulder pain Chronicity: acute Qualified Code(s): M25.511 - Pain in right shoulder
[2018-06-28] MEDS: methylPREDNISolone 40 MG in SYRINGE 0 ML IV SCH ×2 (05:21→18:22)
[2018-06-28] MEDS: OXYCODONE HCL IR 5 MG TAB (IMMEDIATE RELEASE) PO PRN ×3 (05:26→18:27)
[2018-06-28] MEDS: ALBUT/IPRATROP 3MG/0.5MG NEB 3 ML VIAL NEB SCH ×4 (07:38→19:47)
[2018-06-28 08:10] LABS: Partial Thromboplastin Time 53.4 Seconds (21.0-31.0)
--- NOTE | 2018-06-28 08:29 | History & Physical Bridge Note ---
Date of Service June 28, 2018 History & Physical Bridge Note I have examined the patient, reviewed the History & Physical and in the interval since the performance of the History & Physical I have noted the following changes of clinical significance: no changes noted
[2018-06-28] MEDS: PRAVASTATIN SOD 20 MG TAB PO SCH (08:33)
[2018-06-28] MEDS: CITALOPRAM 20 MG TAB PO SCH (08:33)
[2018-06-28] MEDS: CARVEDILOL 6.25 MG TAB PO SCH ×2 (08:33→20:13)
[2018-06-28] MEDS: NICOTINE 21 MG/24 HR TDSY TD SCH (08:34)
--- NOTE | 2018-06-28 11:52 | XRay Report ---
XR chest 1V portable CLINICAL HISTORY: right sided tumor; atypical chest pain; COMPARISON STUDY: Chest x-ray dated 06/25/2018 FINDINGS: There is a right apical mass with probable associated right second rib destruction. There a re postsurgical changes present within the right hemithorax. There is a nonspecific left perihilar op acity, inflammatory versus neoplastic. There are no cystic or pleural effusions.[ IMPRESSION: 1. Right apical mass with suspected underlying rib destruction 2. Nonspecific left perihilar opacity, inflammatory versus neoplastic. Electronically signed by: Jose Juan Gillespie M.D. 06/28/2018 11:51 AM
[2018-06-28] MEDS: NITROGLYCERIN 2% OINTMENT 30GM TUBE EXT SCH ×3 (12:03→23:32)
--- NOTE | 2018-06-28 12:14 | Progress Note ---
DATE: 06/28/2018 PULMONARY PROGRESS NOTE TIME: 11:10 a.m. SUBJECTIVE: The patient is uncomfortable this morning. He is feeling somewhat tight in the chest and neck area. He cannot tell with certainty if this is his panic attack like he had yesterday. It feels a little different. He refused his treatment because he thought it was giving him burning in the throat. Nursing reports that he has had some pauses on the monitor. That was earlier this morning. OBJECTIVE: GENERAL: The patient looks generally uncomfortable, but very anxious. VITAL SIGNS: Temperature 36.8. Heart rate is 100 per minute. Rhythm is regular. Blood pressure elevated at 157/113. The blood pressure has been high since last evening. Respiratory rate 24. LUNGS: The patient is somewhat tight. Wheezes were heard greater on the left than the right. Saturation was 98% on 2 liters. EXTREMITIES: Showed no cyanosis, clubbing or edema. LABORATORY DATA: PTT this morning was 53.4. He had an EKG done in the past few minutes. It shows no significant change compared with June 25. There is what appears to be a possible prior anterior and/or inferior SC. IMPRESSION: 1. Mass, right upper lung and left hilum. 2. History of lung carcinoma - status post right upper lobectomy. 3. Chronic obstructive pulmonary disease. 4. Pulmonary embolism, right and left - small. 5. Bone mets. 6. Mediastinal adenopathy. COMMENTS AND RECOMMENDATIONS: The patient sounds tight. I have asked him to take a breathing treatment this morning. He had refused earlier apparently. I believe he needs that to try and open up. His blood pressure has been significantly elevated since last evening. Reportedly, Dr. Parks is coming to see the patient. He can determine if the patient is acceptable for his surgical procedure. With his history of apparent prior MIs and reportedly some pauses, caution may need to be done prior to clearance for the bronchoscopy.
[2018-06-28] MEDS ORDERED: ONDANSETRON INJ 2 MG/ML 2 ML VIAL ONE (14:15)
[2018-06-28] MEDS ORDERED: GLYCOPYRROLATE 0.2 MG/ML VIAL ONE (14:15)
[2018-06-28] MEDS ORDERED: fentaNYL citrate 100 MCG/2 ML VIAL ONE (14:15)
[2018-06-28] MEDS ORDERED: LIDOCAINE HCL 2% 2 ML VIAL/AMP(20MG/ML) INFIL ONE (14:15)
[2018-06-28] MEDS ORDERED: NEOSTIGMINE METHYLSULFATE 5 MG/5 ML SYR ONE (14:15)
[2018-06-28] MEDS ORDERED: DEXAMETHASONE SOD INJ 4 MG/ML VIAL ONE (14:15)
[2018-06-28] MEDS ORDERED: MIDAZOLAM HCL 1 MG/ML 2ML VIAL ONE (14:15)
[2018-06-28] MEDS ORDERED: PROPOFOL IV EMULSION 10 MG/ML 20 ML VIAL IV ONE (14:15)
[2018-06-28] MEDS ORDERED: ONDANSETRON INJ 2 MG/ML 2 ML VIAL IV PRN (14:26)
[2018-06-28] MEDS ORDERED: ePHEDrine sulfate 50 MG/ML AMP IV PRN (14:26)
[2018-06-28] MEDS ORDERED: PROMETHAZINE HCL 12.5 MG in SODIUM CHLORIDE 0.9% 50 ML IV PRN (14:26)
[2018-06-28] MEDS ORDERED: HYDROmorphone INJ 1 MG/ML SYRINGE IV PRN (14:26)
[2018-06-28] MEDS ORDERED: PHENYLEPHRINE 100MCG/ML 5ML SYR IV PRN (14:26)
[2018-06-28] MEDS ORDERED: ATROPINE SULFATE 0.1 MG/ML 10ML SYR IV PRN (14:26)
[2018-06-28] MEDS ORDERED: fentaNYL citrate 100 MCG/2 ML VIAL IV PRN (14:26)
[2018-06-28] MEDS ORDERED: CEFAZOLIN 250 MG/ML 1 GM VIAL ONE (14:57)
[2018-06-28] MEDS ORDERED: CEFAZOLIN 2000MG 2,000 MG/15 ML SYR IV ONE (14:58)
[2018-06-28] MEDS ORDERED: ROCURONIUM BROMIDE 10 MG/ML 5 ML VIAL ONE (15:01)
[2018-06-28] MEDS ORDERED: LARYING-O-JET KIT (LTA) ONE (15:38)
--- NOTE | 2018-06-28 16:04 | Post Operative Brief Note ---
Immediate Post Op Note v1 Date of Surgery June 28, 2018 Pre & Post Diagnosis Operation Date: 06/28/18 14:20 Pre-Op Diagnosis: PES,LUNG MASS Post-Op Diagnosis: Metastatic nonsmall cell lung cancer to mediastinal nodes Procedure Operation Date: 06/28/18 14:20 Actual Procedures p Endobronchial Ultrasound(Not Applicable) - Nhan Marrufo MD, FACS Surgeon Nhan Marrufo MD, FACS Care Coordination Manager Sayda Estimated Blood Loss 2 Findings Consistent with Post-Op Diagnosis
--- NOTE | 2018-06-28 16:21 | XRay Report ---
XR chest 1V portable CLINICAL HISTORY: s/p EBUS COMPARISON STUDY: 06/28/2018 FINDINGS: Increased density left perihilar region possibly on the basis of a postprocedural contusion . No evidence for pneumothorax. Right lung is clear. IMPRESSION: 1. Mild left perihilar postprocedural contusion. 2. No evidence for pneumothorax. The above report was generated using voice recognition software. It may contain grammatical, syntax or spelling errors. Electronically signed by: Noé Welch M.D. 06/28/2018 4:19 PM
--- NOTE | 2018-06-28 16:50 | Anesthesiology Progress Note ---
Date of Service June 28, 2018 Anesthesia Post Procedure Vital Signs Vital Signs: Temp Pulse Pulse Pulse Resp BP Pulse Ox 06/28/18 16:39 106 H 17 126/99 90 06/28/18 16:30 109 H 20 124/75 95 06/28/18 16:20 115 H 20 119/91 95 06/28/18 16:13 36.2 C L 110 H 14 153/85 H 94 06/28/18 14:11 36.6 C 100 H 16 128/95 93 06/28/18 12:03 100 H 146/81 H 06/28/18 11:36 36.9 C 100 H 20 158/100 H 98 06/28/18 11:12 109 H 24 98 06/28/18 10:41 106 H 24 157/113 H 96 06/28/18 10:39 103 H 24 155/105 H 96 06/28/18 10:38 109 H 24 162/108 H 96 06/28/18 10:35 109 H 24 155/94 H 93 06/28/18 08:31 90 120/72 06/28/18 07:33 91 H 06/28/18 07:00 36.8 C 93 H 18 135/92 95 06/28/18 04:19 36.4 C L 90 20 117/71 92 06/27/18 23:26 36.4 C L 84 20 121/77 95 06/27/18 23:15 91 H 06/27/18 19:44 36.5 C 101 H 18 126/81 94 06/27/18 19:35 103 H 16 95 Pain Intensity Right Shoulder: Pain Intensity: 0 Transfer of Care Handoff Completed per policy Notes Mental Status: alert / awake / arousable Patient Amnestic to Procedure: Yes Nausea / Vomiting: adequately controlled Pain: adequately controlled Airway Patency, RR, SpO2: stable & adequate BP & HR: stable & adequate Hydration State: stable & adequate Anesthetic Complications: no major complications apparent
--- NOTE | 2018-06-28 21:55 | Operative Report ---
DATE OF OPERATION: 06/28/2018 PREOPERATIVE DIAGNOSIS: Right upper lobe and left hilar masses with mediastinal adenopathy. 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 PROCEDURE: Endobronchial ultrasound with biopsy. SURGEON: Nhan Marrufo MD ALL SOURCE INTELLIGENCE TECHNICIAN: David Alfredo, registered respiratory therapist. ANESTHESIA: General anesthesia with endotracheal intubation. INDICATION FOR PROCEDURE AND FINDINGS: This is a 67-year-old male who underwent a right upper lobectomy in the past for rmj-lhvri-bust lung carcinoma who has been found to have a mass in his right upper lung field, which is actually in the superior segment of his lower lobe which is now up in his apex after his right upper lobectomy. He also has a large left hilar mass with a separate mass in his left lower lobe. He had some mediastinal adenopathy. I scheduled him for an endobronchial ultrasound with biopsy with a possible navigational bronchoscopy. I did not feel we had much of a chance of getting the superior segment of the lower lobe as the airways were angulated and it was not going to be easy to get the navigational catheter up. I then did end up bringing him to the operating room on 06/28/2018. I biopsied a large level 7 node at least 12 times. We did not get back any evidence of malignancy. In fact, we got very little in the way of lymphocytes. I then went over to the right level 10 and biopsied this several times as well as the right level 4. I then went over and biopsied the left level 4 and left level 10. The left level 4 and the 10 in particular were loaded with malignant cells which appeared to be a poorly differentiated adenocarcinoma. I sent multiple separate fine needle biopsies off for cytology and into cell wash. He tolerated it well with negligible blood loss. DESCRIPTION OF PROCEDURE: The patient was brought to the operating room and laid in supine position. General anesthesia was induced. Endotracheal intubation was performed with a single lumen tube. After appropriate timeout had been called and antibiotics given, the endobronchial ultrasound scope was placed. I saw no real endobronchial lesions. His right upper lobe bronchus was a bit abnormal with some whitish tissue and I brushed this with a brush. He had very little in the way of any sputum. We closely inspected the other airways and did not see any other abnormalities. Turning the ultrasound on, I then looked at the level 7 node which was fairly big on CT scan and also fairly big on the ultrasound and I biopsied this at least 8 times from the left side and at least 4 or 5 more times from the right. We got back a multitude of macrophages and bronchial epithelium, but did not really see much in the way of lymphocytes. I then went over and did level 10 nodes and biopsied these several times as well as level 4. I then went over to the left side and biopsied a rather small left level 4 lymph node multiple times and then went down to a larger level 10 and I biopsied this multiple times. The rapid onsite evaluation showed these to be loaded with malignant cells. I then did several more separate fine needle biopsies for cytology. We then stopped and I irrigated this out with a regular scope. I did not feel the need to do a navigational bronchoscopy as our chances of getting a right upper lobe diagnosis was quite low and the left hilar mass was rather large and I think we can infer that these lymph nodes are really involved. He tolerated it well, was extubated in the room, and transported back to the postanesthesia care unit in stable condition. I attest to the content of the Intraoperative Record and any orders documented therein. Any exception s are noted below.
--- NOTE | 2018-06-28 22:08 | Hospitalist Progress Note ---
Date of Service June 28, 2018 Assessment & Plan (1) Chest pain: Although patient has known CAD I do not believe his chest pain is ischemic/cardiac. I believe his pain is referred pain from the T1/T2 spine region as those thoracic levels are being destroyed by the RUL lung tumor. The pain is quite radicular from those thoracic levels. I also believe some of the discomfort is due to his COPD exacerbation as well as local effects of the tumor on the pleura as well. EKG, troponin, cxr all checked this am and were negative or unchanged. I discussed these symptoms with the thoracic team in detail. Present on Admission?: Yes (2) Bilateral pulmonary embolism: Small segmental PEs on CT. Likely asymptomatic from these. Heparin drip on hold for endobronchial ultrasound/navigational bronch today. Resume heparin post-op when ok wit thoracic surgery. (3) Lung mass: RUL pancoast tumor. Additional tumor seen in the left perihilar region. Highly concerned for cancer given his prior history of lung ca. NPO for bronch with biopsy today. Appreciate pulmonary and thoracic surgery consults. (4) COPD with exacerbation: Cont IV solumedrol - no wean today. Cont nebs, inhalers, etc. (5) CAD (coronary artery disease): See discussion above in "chest pain." Continue coreg, statin. Should be on aspirin therapy as well. (6) Right shoulder pain: Referred pain from the RUL pancoast tumor and the T1/T2 destruction from the tumor. Pain has been ongoing. Continue pain control. Consult rad onc and oncology prior to discharge? (7) Anxiety: xanax prn. (8) Tobacco use disorder: Counseled to quit. Nicoderm patch daily. Subjective called by nursing staff this am that telemetry was showing minor pauses up to about 1.5sec in duration patient also complained to staff about his pain in the right upper back, right shoulder, right axillary region and some pain in the upper central chest region he was dyspneic as well upon my arrival the patient was receiving a neb treatment he stated his night was uneventful - slept well w/o any cardiopulmonary symptoms he stated that his chest symptoms were different than his chest symptoms when he had his old cardiac events/MIs the pain is positional and truly wraps around from the back to the front of the chest I obtained an EKG and cxr - both unchanged from priors (EKG w/o ST changes, old anterior q's seen) following the neb he felt better tele strips reviewed - longest "pause" 1.5 seconds; almost looks like marked sinus arrhythmia - no dropped beats or AV block seen Review of Systems Constitutional: no fever and no chills Respiratory: + cough and + dyspnea; no hemoptysis Cardiovascular: as per Subjective / HPI and + chest pain; no orthopnea Gastrointestinal: no abdominal pain Psychiatric: + anxiety (mother is also sick in the hospital) Physical Exam Constitutional: average body habitus, + frail appearing and comfortable; no acute distress ENMT: external ear and nose normal, oropharynx normal Mouth: + dentition abnormality (poor dentition) Respiratory: normal respiratory effort; no labored breathing Auscultation: + diminished lung sounds (b/l - slightly worse than yesterday) and + wheezes Cardiovascular: Rate/Rhythm: regular rate and regular rhythm Heart Sounds: normal S1 and normal S2; no murmur Vessels: posterior tibial pulses present and dorsalis pedis pulses present; no JVD Gastrointestinal (Abdomen): normal bowel sounds, soft, nontender, no hepatosplenomegaly Musculoskeletal: tender to palpation over upper thoracic region and lower cervical neck region to palpation; tender to palpation over right shoulder; mild tenderness over upper chest wall Psychiatric: A+Ox3, euthymic affect Results & Data Vital Signs (Past 12 Hours) Vital Signs Temp Pulse Pulse Resp BP Pulse Ox 06/28/18 19:14 36.5 C 91 H 21 113/75 92 06/28/18 18:31 36.4 C L 99 H 22 126/79 93 06/28/18 17:47 36.5 C 99 H 20 140/74 90 06/28/18 17:19 36.4 C L 99 H 20 126/79 91 06/28/18 17:02 36.5 C 101 H 23 118/96 93 06/28/18 16:50 36.5 C 101 H 14 129/96 92 06/28/18 16:40 106 H 17 126/99 90 06/28/18 16:30 109 H 20 124/75 95 06/28/18 16:20 115 H 20 119/91 95 06/28/18 16:13 36.2 C L 110 H 14 153/85 H 94 06/28/18 14:11 36.6 C 100 H 16 128/95 93 06/28/18 12:03 100 H 146/81 H 06/28/18 11:36 36.9 C 100 H 20 158/100 H 98 06/28/18 11:12 109 H 24 98 06/28/18 10:41 106 H 24 157/113 H 96 06/28/18 10:39 103 H 24 155/105 H 96 06/28/18 10:38 109 H 24 162/108 H 96 06/28/18 10:35 109 H 24 155/94 H 93 Laboratory Results Laboratory Results - last 24 hr 06/28/18 06/28/18 07:13 11:37 APTT 53.4 H* PTT Ratio 2.0 Troponin I < 0.015 (1) CAD (coronary artery disease) Associated angina: without angina Coronary Disease-Associated Artery/Lesion type: [place] artery [place] vs. transplanted heart: [place] heart Qualified Code(s): I25.10 - Atherosclerotic heart disease of [place] coronary artery without angina pectoris (2) Right shoulder pain Chronicity: acute Qualified Code(s): M25.511 - Pain in right shoulder (3) Chest pain Chest pain type: unspecified Qualified Code(s): R07.9 - Chest pain, unspecified
[2018-06-29] MEDS: OXYCODONE HCL IR 5 MG TAB (IMMEDIATE RELEASE) PO PRN ×4 (00:30→18:46)
[2018-06-29 05:58] LABS: Hematocrit (blood only) 37.1 % (42-52); Hemoglobin 13.1 g/dL (14.0-18.0); Mean Corpuscular Hgb Conc 35.3 g/dL (32-36); Mean Corpuscular Volume 90.9 fL (80-100); Platelet Count 153 K/uL (130-400); RDW Coefficient of Variation 12.9 % (11.5-14.5); RDW Standard Deviation 43.1 fL (36.4-46.3); Red Blood Count 4.08 M/uL (4.7-6.1); White Blood Count 11.36 K/uL (4.8-10.8)
[2018-06-29] MEDS: methylPREDNISolone 40 MG in SYRINGE 0 ML IV SCH ×2 (05:59→18:45)
[2018-06-29] MEDS: NITROGLYCERIN 2% OINTMENT 30GM TUBE EXT SCH ×3 (05:59→16:42)
[2018-06-29 06:34] LABS: BUN Creatinine Ratio 20.8 (10-20); Calcium 8.4 mg/dl (8.5-10.1); Creatinine Clr Calc Pharmacy 67.3 ml/min; Est GFR (African American) 82.5; Est GFR (Non-African American) 71.1; Potassium 4.7 mmol/L (3.5-5.1)
[2018-06-29] MEDS: ALBUT/IPRATROP 3MG/0.5MG NEB 3 ML VIAL NEB SCH ×4 (07:19→19:41)
[2018-06-29] MEDS: NICOTINE 21 MG/24 HR TDSY TD SCH (08:23)
[2018-06-29] MEDS: CARVEDILOL 6.25 MG TAB PO SCH ×2 (08:23→20:32)
[2018-06-29] MEDS: PRAVASTATIN SOD 20 MG TAB PO SCH (08:23)
[2018-06-29] MEDS: CITALOPRAM 20 MG TAB PO SCH (08:23)
--- NOTE | 2018-06-29 08:43 | Surgery Progress Note ---
Date of Service June 29, 2018 Assessment & Plan (1) Lung mass: -EBUS performed on 06/28/18 -preliminary path showed NSCLC -discussed with primary service and plans noted to consult oncology Subjective Pt. states he feels good. No hemoptysis. He denies SOB. Physical Exam Respiratory: normal respiratory effort; no respiratory distress and no labored breathing slight decrease of BS at bases Results & Data Vital Signs (Past 12 Hours) Vital Signs Temp Pulse Pulse Resp BP Pulse Ox 06/29/18 07:49 37.0 C 85 18 117/73 94 06/29/18 07:17 93 H 18 91 06/29/18 07:03 99 H 06/29/18 06:02 93 06/29/18 03:24 36.6 C 96 H 20 119/72 94 06/29/18 00:00 96 06/28/18 23:38 36.5 C 99 H 22 118/77 91
--- NOTE | 2018-06-29 10:13 | Progress Note ---
DATE: 06/29/2018 PULMONARY PROGRESS NOTE TIME: 9:55 a.m. SUBJECTIVE: The patient is feeling much better today. He is not having the chest pain he was yesterday. He is much less anxious. He had the EBUS yesterday and tolerated it well without difficulty. He states his breathing is better. His cough has been mild. He states his appetite is good today. OBJECTIVE: GENERAL: The patient appeared comfortable. VITAL SIGNS: Temperature 37 degrees. He has had no fevers. Cardiac rate currently 99 per minute. The rhythm is regular. Blood pressure 117/73. Respiratory rate 20 breaths per minute. LUNGS: He persists with wheezes bilaterally posteriorly. He is not in distress. Saturation was 94% on 3 liters. I did have him take the oxygen off. After 5-10 minutes, the saturation was down to 90%. He had no symptoms. EXTREMITIES: Showed no cyanosis, clubbing or edema. The preliminary biopsies from yesterday are reportedly showing nonsmall cell carcinoma, although the official reports are pending. LABORATORY DATA: White count today 11.36. Hemoglobin 13.1. Platelets 153,000. Electrolytes today show sodium 138, potassium 4.7, chloride 105, bicarbonate 32. BUN 22, creatinine 1.08. IMPRESSION: 1. Mass, right upper lung and left hilum. 2. History of lung carcinoma - status post right upper lobectomy. 3. Mediastinal adenopathy - positive nonsmall cell. 4. Chronic obstructive pulmonary disease. 5. Bilateral small pulmonary emboli. 6. Bone metastasis. COMMENTS AND RECOMMENDATIONS: The patient clinically is doing pretty well. I believe the methylprednisolone can be changed to oral prednisone at 40 mg daily. He will need to be started on an anticoagulant. I believe either Xarelto or Eliquis would be reasonable if approved by insurance. He does have a nebulizer at home. He would need some prescriptions for medicines. He may need oxygen at home. This can be determined shortly prior to discharge. He needs to be set up with medical oncology and radiation oncology. His prior medical oncology doctor was Dr. Bailey. He could not remember who he had for radiation oncology, but it may have been Dr. Hilario.
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
--- NOTE | 2018-06-29 17:02 | Emergency Department Note ---
ED Visit Note .
--- NOTE | 2018-06-29 19:03 | Hospitalist Progress Note ---
Date of Service June 29, 2018 Assessment & Plan (1) Bilateral pulmonary embolism: Small segmental PEs on CT. Likely asymptomatic from these. Will start eliquis 10mg BID x 7 days then 5mg BID thereafter. Ok to resume anticoagulation per thoracic. Will check on tidwell tomorrow. (2) Lung mass: RUL pancoast tumor. Additional tumor seen in the left perihilar region. This is presumed to be cancer. s/p bronch with biopsies - awaiting pathology. Rad onc consulted - Dr Hilario - to have first XRT on Monday. Spoke with Dr Corey from oncology who will consult in AM. (3) Chest pain: Had such yesterday - w/u negative for ischemic chest pain. Likely referred pain from tumor, referred pain from T1/T2 destruction/nerve impingement, COPD, etc. Improved today. (4) COPD with exacerbation: Improving. Likely can d/c IV solumedrol in am and change to prednisone. Cont nebs, inhalers, etc. 2-step done -- needs 2 L NC O2 w/ ambulation. (5) CAD (coronary artery disease): See discussion above in "chest pain." Continue coreg, statin. Should be on aspirin therapy as well. (6) Right shoulder pain: Referred pain from the RUL pancoast tumor and the T1/T2 destruction from the tumor. Pain has been ongoing but improved today. Continue pain control. Radiation to start on Monday. Appreciate rad onc consultation. (7) Anxiety: xanax prn. (8) Tobacco use disorder: Counseled to quit. Nicoderm patch daily. Subjective patient anxious to d/c home 2-step O2 test ordered -- will need 2 liters w/ ambulation seen by rad onc - to have simulation today, then first xrt treatment on Monday patient overall feels better - less cough,wheeze,and dyspnea right shoulder, back, and chest pain all improved Review of Systems Constitutional: no fever and no chills Respiratory: + cough; no hemoptysis Cardiovascular: no chest pain Physical Exam Constitutional: average body habitus, + frail appearing and comfortable; no acute distress ENMT: external ear and nose normal, oropharynx normal Mouth: + dentition abnormality (poor dentition) Respiratory: normal respiratory effort; no labored breathing Auscultation: + diminished lung sounds and + wheezes (but improved today) Cardiovascular: Rate/Rhythm: regular rate and regular rhythm Heart Sounds: normal S1 and normal S2; no murmur Vessels: posterior tibial pulses present and dorsalis pedis pulses present; no JVD Gastrointestinal (Abdomen): normal bowel sounds, soft, nontender, no hepatosplenomegaly Psychiatric: A+Ox3, euthymic affect Results & Data Vital Signs (Past 12 Hours) Vital Signs Temp Pulse Pulse Pulse Pulse Pulse Pulse 06/29/18 16:00 36.4 C L 94 H 06/29/18 15:52 103 H 102 H 107 H 105 H 06/29/18 14:39 102 H 06/29/18 11:27 36.4 C L 65 06/29/18 10:55 76 06/29/18 07:49 37.0 C 85 06/29/18 07:17 93 H Resp Resp Resp Resp Resp BP Pulse Ox 06/29/18 16:00 20 114/71 93 06/29/18 15:52 20 18 16 16 06/29/18 14:39 18 92 06/29/18 11:27 18 123/79 94 06/29/18 10:55 16 91 06/29/18 07:49 18 117/73 94 06/29/18 07:17 18 91 Pulse Ox Pulse Ox Pulse Ox Pulse Ox 06/29/18 16:00 06/29/18 15:52 94 86 L 93 90 06/29/18 14:39 06/29/18 11:27 06/29/18 10:55 06/29/18 07:49 06/29/18 07:17 (1) CAD (coronary artery disease) Associated angina: without angina Coronary Disease-Associated Artery/Lesion type: [place] artery [place] vs. transplanted heart: [place] heart Qualified Code(s): I25.10 - Atherosclerotic heart disease of [place] coronary artery without angina pectoris (2) Right shoulder pain Chronicity: acute Qualified Code(s): M25.511 - Pain in right shoulder (3) Chest pain Chest pain type: unspecified Qualified Code(s): R07.9 - Chest pain, unspecified
[2018-06-29 20:23] LABS: Alanine Aminotransferase 35 U/L (12-78); Albumin Level 2.9 gm/dl (3.4-5.0); Alkaline Phosphatase 66 U/L (45-117); Aspartate Aminotransferase 48 U/L (15-37); Bilirubin Direct < 0.1 mg/dl (0-0.2); Bilirubin,Total 0.2 mg/dl (0.2-1); Total Protein 6.4 gm/dl (6.4-8.2)
[2018-06-29] MEDS: APIXABAN 5 MG TABLET PO SCH (20:49)
[2018-06-30] MEDS: NITROGLYCERIN 2% OINTMENT 30GM TUBE EXT SCH ×2 (00:19→04:57)
[2018-06-30] MEDS: OXYCODONE HCL IR 5 MG TAB (IMMEDIATE RELEASE) PO PRN ×2 (00:19→07:49)
[2018-06-30] MEDS: methylPREDNISolone 40 MG in SYRINGE 0 ML IV SCH (05:03)
[2018-06-30 06:53] LABS: Hematocrit (blood only) 37.4 % (42-52); Hemoglobin 13.3 g/dL (14.0-18.0); Mean Corpuscular Hgb Conc 35.6 g/dL (32-36); Mean Corpuscular Volume 89.5 fL (80-100); Mean Platelet Volume 10.5 fL (7.4-10.4); Platelet Count 132 K/uL (130-400); RDW Standard Deviation 42.5 fL (36.4-46.3); Red Blood Count 4.18 M/uL (4.7-6.1); White Blood Count 11.12 K/uL (4.8-10.8)
[2018-06-30] MEDS: ALBUT/IPRATROP 3MG/0.5MG NEB 3 ML VIAL NEB SCH ×2 (07:08→11:10)
[2018-06-30 07:29] LABS: BUN Creatinine Ratio 21.7 (10-20); Calcium 8.6 mg/dl (8.5-10.1); Creatinine Clr Calc Pharmacy 83.5 ml/min; Est GFR (African American) 104.2; Est GFR (Non-African American) 89.9; Potassium 4.1 mmol/L (3.5-5.1)
[2018-06-30] MEDS: APIXABAN 5 MG TABLET PO SCH (08:50)
[2018-06-30] MEDS: CITALOPRAM 20 MG TAB PO SCH (08:51)
[2018-06-30] MEDS: PRAVASTATIN SOD 20 MG TAB PO SCH (08:51)
[2018-06-30] MEDS: CARVEDILOL 6.25 MG TAB PO SCH (08:51)
[2018-06-30] MEDS: NICOTINE 21 MG/24 HR TDSY TD SCH (08:51)
--- NOTE | 2018-06-30 10:00 | Consultation Report ---
DATE OF CONSULTATION: 06/30/2018 REASON FOR CONSULTATION: Recurrent lung cancer. HISTORY OF PRESENT ILLNESS: The patient is a very pleasant 67-year-old gentleman with remote history of lung cancer, previously managed by Dr. Asael Bailey prior to [facility]. He was admitted to [facility] on 06/25/2018 with a complaint of right shoulder pain, which was felt to be pleuritic in nature. The patient relates experiencing actually left shoulder pain initially that spontaneously improved; however, then began to experience radiation of pain towards the right with numbness extending down into the right elbow. As symptomatology worsened, he decided to present to the [facility] Emergency Room and after CTA of the chest was performed, was admitted. CTA of the chest was performed because of prior history of pulmonary embolism. On the admitting study, there was a trace nonocclusive thrombus noted; however, more importantly, a 5.5 cm right apical mass that extends through the pleura with associated destruction of the right second rib and right transverse processes T1-T2 consistent with Pancoast tumor. Additional small osteolytic metastatic lesions are seen within the bodies of T1 and T2. Lastly, a 6 x 3.5 cm left hilar mass which is also consistent with neoplasm. Based on these findings, Dr. Nhan Marrufo, thoracic surgeon was consulted. The patient then underwent endobronchial ultrasound with biopsies. Biopsies today have all been negative. There are couple of results that are pending and suspect he does indeed suffer from recurrent lung cancer. His pain has improved. Radiation-Oncology is also on consult and I assume planning for palliative radiation therapy to painful bony regions. This gentleman was originally diagnosed he believes either in 2010 or 2011 with a right apical lesion. He underwent initial VATS and ultimately right upper lobectomy followed by chemoradiation. The patient did not advise me that there is documentation pointing out that he actually relapsed in 2012 and received radiation therapy. He continued to follow with Dr. Asael Bailey up until Dr. Bailey retired around 2016, at which time Dr. Bailey stated he did not need to return. He felt he was cured. Clinically, other than his shoulder discomfort, this gentleman has a very good performance status. His appetite is robust and he denies overt weight loss. The hospitalist service asked me to see him prior to discharge to expedite care. PAST MEDICAL HISTORY: Significant for: 1. Adenocarcinoma of the right lung status post right upper lobectomy. 2. Coronary artery disease, myocardial infarction x2 with stenting, hypertension, hyperlipidemia, COPD, continued cigarette smoker, major depressive disorder. PAST SURGICAL HISTORY: Right upper lobectomy. MEDICATIONS: Prior to admission include citalopram 20 mg p.o. daily, clopidogrel 75 mg p.o. daily, carvedilol 6.25 mg p.o. b.i.d., Zofran 8 mg p.o. q. 8 hours p.r.n., albuterol sulfate 2 puffs inhalation t.i.d., Breo Ellipta 1 inhalation p.o. daily, pravastatin 20 mg p.o. daily. ALLERGIES: No known drug allergies. FAMILY HISTORY: His mother was recently diagnosed with metastatic cancer of the liver, presently hospitalized according to the patient. Origin of cancer unknown at this time. Father several years ago attributable to cerebral aneurysm. 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 He has at least a 40-pack year history, possibly higher and continued to smoke half pack of cigarettes leading up to his most recent admission. Negative for illicit drugs or alcohol. REVIEW OF SYSTEMS: GENERAL: As per HPI, has transient migratory shoulder pain. Negative for fevers, chills or sweats. He is not anorexic or losing weight. SKIN: No rashes or lesions. No history of dermatoses. HEENT: Denies headaches, lightheadedness or dizziness. No acute visual or hearing deficits. No sinus symptoms, sore throat or dysphagia. LYMPH: No history of lymphoproliferative disease. CARDIAC: Positive history of coronary artery disease. Positive history of cardiac catheterization and stenting. No current angina or palpitations. PULMONARY: Positive history of COPD, currently no cough, no hemoptysis. He is not acutely short of breath or dyspneic at this time. GASTROINTESTINAL: Negative for abdominal pain, nausea, vomiting, diarrhea or constipation, hematochezia or melena stools. GENITOURINARY: No history of prostate disease. No hematuria, dysuria, urinary incontinence. PSYCHIATRIC: Negative for anxiety, depression or psychoses. ENDOCRINE: Negative for diabetes or thyroid disease. MUSCULOSKELETAL: Positive for mid thoracic pain. No arthralgias or myalgias. No history of arthritis. NEUROLOGIC: Negative for seizures, stroke or migraine headache. Perhaps a radicular pain extending down his right upper extremity. HEMATOLOGIC: Positive history of chronic PE, negative for cytopenias otherwise. PHYSICAL EXAMINATION: GENERAL: Very pleasant 67-year-old gentleman, awake, alert and appropriate, in no acute distress. VITAL SIGNS: Temperature 36.6, pulse 96, respiratory rate 18, blood pressure 134/79. SKIN: Warm, dry, noncyanotic without petechia, rash or ecchymosis. HEENT: Head atraumatic, normocephalic. Eyes: PERRLA, EOMI. Sclerae nonicteric. No conjunctival injection. Nares patent without rhinorrhea or discharge. Throat clear. Tongue midline. Mucous membranes are moist. No buccal lesions or ulcerations. NECK: Supple. Trachea is midline. No JVD or thyromegaly noted. LYMPH: No cervical or supraclavicular palpable nodes. HEART: Regular rate and rhythm. No clicks, rubs, murmurs or gallops. LUNGS: Coarse rhonchi heard in the left posterior base predominantly. ABDOMEN: Soft, nontender, nondistended without palpable hepatosplenomegaly. EXTREMITIES: No calf tenderness or swelling. No clubbing, cyanosis or edema. NEUROLOGICAL: He is awake, alert and oriented x3. Cranial nerves are intact. No gross motor or sensory deficits are noted. LABORATORY DATA: WBC count 11,120, hemoglobin 13.3, platelet count 132,000. Sodium 140, potassium 4.1, chloride 105, carbon dioxide 30, creatinine 0.87, BUN 19, albumin slightly decreased 2.9. IMPRESSION: 1. Probable metastatic lung cancer. 2. Bilateral pulmonary embolism. 3. Radicular pain attributable to disease or cancer progression. 4. Chronic obstructive pulmonary disease. 5. Coronary artery disease by history. PLAN: I had the pleasure of meeting the patient at bedside this morning. His clinical course is summarized in history of present illness. He suffered with lung cancer back in 2010 and 2011, dates elude the patient precisely. He underwent VATS mediated right upper lobectomy followed by chemoradiation and followed with Dr. Asael Bailey for several years up until Dr. Bailey's [facility]. The patient remained relatively asymptomatic until recently, developed shoulder pain which translated to the right shoulder after a brief period of resolution. CTA of the chest clearly suggest disseminated intrathoracic disease with a primary mass in the right side and a secondary perihilar mass and bony involvement thereon. Dr. Hilario is familiar with the patient and most likely will recommend a palliative XRT to the bony regions. Unclear if the primary lesion should be treated by combined modality therapy. This gentleman definitely has evidence for metastatic disease and at some point would like to get a PET scan or perhaps CT of the abdomen and pelvis to evaluate below the diaphragm as well. He is currently intact neurologically other than the radicular pain brought on by the newly diagnosed Pancoast tumor. I will await formal biopsy results and biomarkers as well to determine how to proceed therapeutically. I plan to have the patient in the office within the next week or so. I will discuss the case directly with Dr. Hilario on Monday. From a performance status standpoint, I see no reason why the patient cannot be treated aggressively. I have nothing further to add at this time and there is no medical contraindication for the patient to be discharged today. [facility]
--- NOTE | 2018-06-30 11:11 | Progress Note ---
DATE: 06/30/2018 PULMONARY PROGRESS NOTE TIME: 9:50 a.m. SUBJECTIVE: The patient is feeling very good. He denies shortness of breath. He states he has been ambulating without difficulty. Denies cough. He is anxious for discharge. OBJECTIVE: GENERAL: The patient is comfortable at rest. VITAL SIGNS: Temperature 36.6. CARDIAC: Heart rate 96 per minute. Rhythm regular. Blood pressure 134/79. LUNGS: Auscultation of the lung david revealed mild wheezes on the left. Right side was clear. This is the best I have heard him. Respiratory rate 18, saturation 91% on room air. EXTREMITIES: Showed no cyanosis, clubbing or edema. The patient did a 2-step yesterday. He apparently does need oxygen at 2 liters with ambulation. LABORATORIES: White count today is 11.12. Hemoglobin 13.3. Platelets 132,000. Electrolytes are within the limits of normal. BUN 19 with creatinine 0.87. AST was slightly elevated at 48. ALT 35. Alkaline phosphatase 66. Total bilirubin 0.2. The patient was seen by Dr. Hilario. Apparently, he was simulated yesterday for treatments. IMPRESSIONS: 1. Mass, right upper lung and left hilum -- likely metastatic carcinoma. 2. History of lung carcinoma -- status post right upper lobectomy. 3. Chronic obstructive pulmonary disease. 4. Bilateral pulmonary embolism. 5. Bone metastasis. 6. Mediastinal adenopathy. COMMENTS AND RECOMMENDATIONS: The patient is doing well. No objection to discharge. Would change to prednisone and give a slow taper. I believe he would benefit from home nebulizer. We will see again if specifically requested.
[2018-06-30 11:46] VITALS: BP 126/77; TEMP 98.2; O2SAT 90
[2018-06-30 12:40] VITALS: PULSE 96
--- NOTE | 2018-07-06 20:52 | Discharge Summary ---
Date of Service date of admission - June 26, 2018 date of discharge - June 30, 2018 Admission HPI Per Admitting Provider 67 y/o male with RUL Lung CA 2009, recurrence 2012 in the RLL s/p resection/chemo/radiation, CAD NH x 2 2008, HTN, Hyperlipidemia, COPD, smoker. Presents with R shoulder pain which was somewhat pleuritic in nature. Due to his history, a CTA was obtained and demonstrated peripheral PEs, likely recurrence of cancer with a RUL Pancoast tumor with erosion into the 2nd rib, pleura and thoracic spine. The pt denies CP or SOB. Labs are unremarkable. The pt had presented to the hospital one day prior and had requested discharge to take care of his mother. He stated he would return today. He was provided with 1.5mg/kg of Lovenox and discharged home. He has returned for admission and further workup. Principal Diagnosis bilateral pulmonary emboli Discharge Exam Constitutional average body habitus, + frail appearing and comfortable; no acute distress ENMT external ear and nose normal, oropharynx normal Mouth: + dentition abnormality (poor dentition) Respiratory normal respiratory effort; no labored breathing Auscultation: + diminished lung sounds and + wheezes (but improved today) Cardiovascular Rate/Rhythm: regular rate and regular rhythm Heart Sounds: normal S1 and normal S2; no murmur Vessels: posterior tibial pulses present and dorsalis pedis pulses present; no JVD Gastrointestinal (Abdomen) normal bowel sounds, soft, nontender, no hepatosplenomegaly Psychiatric A+Ox3, euthymic affect Discharge Data Allergies Allergy/AdvReac Type Severity Reaction Status Date / Time No Known Allergies Allergy Unverified 06/25/18 12:05 Consultations 1. pulmonary - Nhan Yepez DO 2. thoracic surgery - Nhan Marrufo MD 3. radiation oncology - Jacques Hilario MD 4. hematology/oncology - Jewel Corey DO Procedures Performed 1. Operation Date: 06/28/18 Endobronchial Ultrasound with biopsies - Nhan Marrufo MD, FACS 2. oxygen 2-step -- needs 2 liters of [place] O2 with ambulation only. Ordered Studies 1. CTA chest, thoracic spine CT - IMPRESSION: 1. No central pulmonary embolus is identified. 2. There is trace nonocclusive thrombus identified within segmental branches of the right and left upper lobe pulmonary arteries. This is age indeterminant and may be chronic. 3. Emphysema and postoperative change from previous right-sided pulmonary resection. 4. There is an approximately 5.5 cm right apical mass lesion. This extends through the pleura, and causes erosive destruction of the right second rib, the right transverse processes of T1 and T2, and also invades the T1 and T2 vertebral bodies. This is consistent with a Pancoast tumor. 5. Additional small osteolytic metastatic lesions are seen within the bodies of T1 and T2. 6. There is approximately 6 x 3.5 cm left perihilar mass lesion which is also c onsistent with neoplasm. 7. There is diffuse peribronchial thickening with mucus plugging in the lower lobes. Correlate clinically for evidence of bronchitis/reactive airway disease. 8. There is extensive micronodular change seen at the right lung base. This could present metastatic disease versus an infectious/inflammatory pneumonitis. 9. There is no evidence of acute or pathologic fracture involving the thoracic spine. 10. There are are mildly enlarged mediastinal and right supraclavicular lymph nodes. Metastatic disease is not excluded. 2. cervical spine CT- IMPRESSION: 1. No acute fractures or traumatic subluxations identified 2. Right apical mass with secondary T1,T2 and T3 vertebral involvement. The findings are suspicious for a malignant Pancoast tumor. Additional workup is advocated. Hospital Course (1) Bilateral pulmonary embolism: Small segmental PEs on CT. Briefly received IV heparin infusion then was later transitioned to oral eliquis following his bronchoscopy. He will take eliquis 10mg BID x 7 days then 5mg BID thereafter. (2) Lung mass: RUL pancoast tumor. Additional tumor seen in the left perihilar region. This is presumed to be cancer given his past history and the radiographic findings. s/p bronchoscopy with multiple biopsies by Dr Nhan Marrufo. Pathology was pending at time of discharge. He was seen in consult by radiation oncology, Dr Werner Hilario. He was also seen by hematology/oncology, Dr Jewel Corey. He received his radiation "simulation" before discharge, and will initiate definitive radiation treatments several days after discharge. He will follow-up with Dr Corey to discuss treatment options. (3) Chest pain: This was likely referred pain from the RUL tumor, referred pain from the T1/T2 destruction/nerve impingement by the presumed cancer, COPD, etc. No evidence of ischemia or ACS. Troponins were negative. EKGs were stable. (4) COPD with exacerbation: Improved with IV solumedrol and later changed to oral prednisone. He will continue nebs, inhalers, etc. 2-step O2 test was done -- needs 2 L NC O2 with ambulation only. He was heavily counseled to quit smoking. A prednisone taper will be completed post-discharge. (5) CAD (coronary artery disease): See discussion above in "chest pain." Continue coreg, statin. Should be on aspirin therapy as well. (6) Right shoulder pain: Referred pain from the RUL pancoast tumor and the T1/T2 destruction from the tumor. Pain has been ongoing. To receive palliative radiation. Given a prescription of oxycodone prn at discharge. (7) Anxiety: xanax prn. (8) Tobacco use disorder: Counseled to quit. Nicoderm patch daily. Total Time Total Time Spent Total Time Spent (In Minutes): 45 Total Time Includes: Examination of the Patient, Discharge Planning, Medication Reconciliation and Communication With Other Providers Discharge Plan Discharge Items Patient Disposition: Home - Self-Care Reason For Visit: right-sided LUNG MASS; pulmonary emboli Discharge Diagnosis: right-sided lung mass with biopsy of lymph nodes; pulmonary emboli (blood clots) in lungs Discharge Goals: Diagnostic testing and Therapeutic intervention Activity: Resume your previous activity Activity Comment: as tolerated Non-emergency contact: Primary Care Provider and Oncologist Call non-emergency contact if: you have any medication questions, your symptoms worsen, your pain is not controlled, your pain is worsening, your pain is unusual for you, your pain is concerning for you and your temperature is above 100.5 Follow-up/Referrals: Jacques Hilario MD [Physician] - (please report to the [facility] on Monday or Monday per their instructions for radiation therapy) Jewel Corey DO [Physician] - (please call and schedule an appointment with Dr. Corey, the oncologist, in 1-2 weeks at the [facility]) ABISAI SCHERER PA [Primary Care Provider] - (please see your family doctor within 5 days) Diet: Regular Addtl Provider Instructions: From Davin Parks - Hospitalist - You were treated for COPD exacerbation and blood clots (pulmonary emboli) in the lungs. You also underwent a bronchoscopy in order to obtain samples (biopsies) from the lung mass and lymph nodes in the right chest. Most of the biopsy results are still pending at this time. You also underwent a walking oxygen test and you will need to use 2 liters of oxygen when you walk, leave your home, etc. Recommendations: 1. take a prednisone course; start this TOMORROW on Monday. 2. take ELIQUIS for your blood clots. Your first month of treatment is called a "starter pack." During the first month you will take this medication as follows -- * 10mg twice a day for 7 days * THEN 5mg twice a day for the remainder of the first month * for all subsequent months you will then remain on a dose of 5mg twice a day * I have given you a prescription for the later months; do NOT fill this until your first month starter pack is done Take your first dose of ELIQUIS TONIGHT at home. 3. for right shoulder/neck pain - take oxycodone 5mg every 6 hours as needed for pain. Oxycodone can impair your thinking and make you sleepy. Do NOT drive a car if you are taking oxycodone. Do NOT drink alcohol while taking oxycodone. The oxycodone WILL make you constipated. 4. Constipation - take the following medications [id number] daily - * miralax 1 serving daily * senna (senakot) 2 tablets daily 5. Use your oxygen 2 liters with any activity / walking AND when you leave your home. DO NOT SMOKE WHILE USING OXYGEN AND DO NOT LET OTHERS SMOKE IN YOUR HOME. THIS CAN CAUSE A FIRE. 6. You can use irpratropium-albuterol nebs every 6 hours as needed for cough/wheezing/shortness of breath. The liquid medication can be obtained from your pharmacy. The neb machine you will get through [facility]. 7. Other information on blood clots -- Medication Instructions: * Eliquis is a medicine prescribed to prevent blood clots * Eliquis will thin your blood and help prevent new clots * Take your medications exactly as directed * Never skip a dose. Never take a double dose. If you miss a dose, take it as soon as you remember Risk of Adverse Drug Reactions and Interactions: * Eliquis increases your risk of bleeding Diet: * No dietary changes are needed when you take Eliquis Call your Doctor if you experience any of the following: * Swelling or Pain in your leg * Sudden, continuous pain deep in a muscle * Pain that worsens when you are active or when you stand still for a long time * Chest Pain * Sudden Shortness of Breath * Rapid or pounding heart beat * Fainting * Dizziness * Cough with blood or bloody sputum * Sweating more than normal * Bruises * heavy or uncontrolled bleeding * Blood in your urine, stool or vomit * Black or tarry stools Caring for Your Self at Home: * Avoid sitting, standing or lying down for long periods without moving your legs and feet * When traveling by car, stop to get out and move around at least once every 3 hours * On long airplane, train or bus rides, get up and move around when possible * If you can't get up, wiggle your toes and tighten your calves to keep your blood moving 8. Try to quit smoking if possible. 9. Follow-up - see separate section for details. 10. Return to [facility] or any hospital if -- * you have worsening shortness of breath or chest pains * you have bleeding from the rectum, your bladder, the nose, etc * you are coughing up blood * you have severe diarrhea or severe constipation * you have uncontrolled pain in your neck, right shoulder, etc * any other concerns Prescriptions: New Eliquis 5 mg (74 tabs) tablets,dose pack 5 mg PO DIRECTED Qty: 1 RF: 0 Oxygen Home Liters Per Minute .ROUTE .MEDSUPPLY Qty: 1 RF: 0 polyethylene glycol 3350 [Miralax] 17 gram Powder In Packet 17 g PO DAILY Qty: 30 RF: 0 oxycodone 5 mg Tablet 5 mg PO Q6H PRN (Reason: pain) Qty: 30 RF: 0 prednisone 10 mg tablet 10 mg PO DIRECTED Qty: 16 RF: 0 Eliquis 5 mg tablet 5 mg PO BID Qty: 60 RF: 5 ipratropium-albuterol 0.5 mg-3 mg(2.5 mg base)/3 mL solution for nebulization 3 ml INH QID Qty: 120 RF: 5 Continued citalopram 20 mg Tablet 20 mg PO DAILY Qty: 0 RF: 0 clopidogrel 75 mg Tablet 75 mg PO DAILY Qty: 0 RF: 0 carvedilol 6.25 mg Tablet 6.25 mg PO BID Qty: 0 RF: 0 ondansetron HCl 8 mg Tablet 8 mg PO BID PRN (Reason: Nausea) Qty: 0 RF: 0 albuterol sulfate 90 mcg/actuation Hfa Aerosol Inhaler 2 puff INHALATION TID Qty: 0 RF: 0 pravastatin 20 mg Tablet 20 mg PO DAILY RF: 0 Breo Ellipta 100-25 mcg/dose Blister With Device 1 inh INHALATION DAILY RF: 0 Stand-Alone Forms: [facility] Discharge Orders: Discharge Order (Routine); Ordered 06/30/18 Ordered By: Davin Parks Admission Data Admit Date/Time: 06/26/18 14:28 Attending Provider: Davin Parks Admit Provider: Wayne Shaw Primary Care Provider: ABISAI SCHERER Other Providers: Nhan Yepez ; Nhan Marrufo ; Jacques Hilario ; Jewel Corey V Service: Telemetry Medical Other Interventions: Discharge Summary Assessment (RN) Last Done: 06/30/18 12:31 Pending Studies at Discharge: Yes Studies:: biopsies from your lung DC Date/Time DO NOT enter until pt leaves facility: 06/30/18 13:50
== END 2018-06-30 13:50 | disposition home or self-care (01) | DRG 180 ==
LOC: ED 12:33 → SUATTDRO 14:28 → 2N 14:28
DX: I25.2 Old myocardial infarction; C79.51 Secondary malignant neoplasm of bone; E78.5 Hyperlipidemia, unspecified; Z79.899 Other long term (current) drug therapy; Z95.5 Presence of coronary angioplasty implant and graft; Z92.21 Personal history of antineoplastic chemotherapy; R07.9 Chest pain, unspecified; R91.8 Other nonspecific abnormal finding of lung field; J43.9 Emphysema, unspecified; Z90.2 Acquired absence of lung [part of]; Z92.3 Personal history of irradiation; Z51.81 Encounter for therapeutic drug level monitoring; I26.99 Other pulmonary embolism without acute cor pulmonale; Z82.49 Family history of ischemic heart disease and other diseases of the circulatory system; C77.1 Secondary and unspecified malignant neoplasm of intrathoracic lymph nodes; M25.512 Pain in left shoulder; I73.9 Peripheral vascular disease, unspecified; I10 Essential (primary) hypertension; F41.9 Anxiety disorder, unspecified; F32.9 Major depressive disorder, single episode, unspecified; I25.10 Atherosclerotic heart disease of native coronary artery without angina pectoris; C34.11 Malignant neoplasm of upper lobe, right bronchus or lung; F17.210 Nicotine dependence, cigarettes, uncomplicated; Z80.0 Family history of malignant neoplasm of digestive organs

== ENCOUNTER 2019-01-25 21:28 | Inpatient (IN) ==
[2019-01-25] MEDS ORDERED: AZITHROMYCIN 250 MG TAB PO ONE (22:38)
[2019-01-25] MEDS ORDERED: POLYETHYLENE (MIRALAX) 17 GM PACK PO PRN (22:38)
[2019-01-25] MEDS ORDERED: ALUMINUM/MAGNESIUM SUSP 30 ML UDC PO PRN (22:38)
[2019-01-25] MEDS ORDERED: ACETAMINOPHEN 325 MG TAB PO PRN (22:38)
[2019-01-25] MEDS ORDERED: MAGNESIUM HYDROXIDE SUSP 30 ML UDC PO PRN (22:38)
[2019-01-25] MEDS ORDERED: ONDANSETRON INJ 2 MG/ML 2 ML VIAL IV PRN (22:38)
--- NOTE | 2019-01-25 22:50 | History & Physical Report ---
Date of Service January 25, 2019 Assessment & Plan (1) Shortness of breath: 68 yo M with complex PMHx including pancoast tumor of lung with metastases, ischemic cardiomyopathy and COPD Here with chills, worsening hypoxia, wheezing, dyspnea and cough Assessment: acute on chronic respiratory failure in setting of COPD w/ exacerbation vs CAP in setting of significant lung tumor burden. Plan: -admit to Tele -continuous O2 - pt is on 2L at baseline -Duonebs q4 jocelin with PRN -Solumedrol 60 q8h -Azithromycin and Rocephin in light of immunosuppressed status to cover for CAP - however if remains afebrile and improves clinically, day team to narrow coverage -consult Pulmonology, sees Jayson Moran PA-C FEN/GI: HH diet. Received a dose of lasix per report at OSH. DVT ppx: on eliquis CODE STATUS: DNR/DNI as d/w patient DISPO: Tele (2) On home O2: Diagnosed with b/l small segmental pulmonary emboli in 07/08. On eliquis. 2L NC at baseline (3) Patient has active physician orders for life-sustaining treatment (POLST) form: Desires no heroic measures but does want antbiotics/fluids if would make him more comfortable and make it possible to return home eventually. (4) Pancoast tumor of right lung: (5) Peripheral vascular disease: (6) Dyslipidemia: Cont home statin (7) S/P lobectomy of lung: Sees Dr. Marrufo. (8) Paroxysmal atrial fibrillation: Currently in sinus, although somewhat rapid. On chronic anticoagulation with Eliquis, this has been continued Cont home coreg (9) Ischemic cardiomyopathy: Cont home Coreg as below, and furosemide 20 daily (10) HTN (hypertension): cont home coreg (11) COPD (chronic obstructive pulmonary disease): Duonebs as above (12) Depression: cont home buspar, celexa (13) Chronic pain: continue home oxycodone 10mg PO QID PRN (14) Chronic anticoagulation: cont home eliquis History of Present Illness Chief Complaint: SOB, worsening hypoxia on pt's home pulse ox - to low 80s Primary Care Provider: ABISAI SCHERER 68 y/o male with RUL Lung CA 2009, recurrence 2012 in the [facility] s/p resection/chemo/radiation, CAD [place] x 2 2008, HTN, Hyperlipidemia, COPD (on rescue inhaler, follows Jayson Dean), former smoker, home O2 dependent - here as transfer from [facility] due to acute shortness of breath. Pt reports steady decline in breathing ability and appetite since starting chemotherapy, is dependent on 2L O2 at home normally, but began feeling more short of breath than normal since yesterday. Noted his O2 sats remained in the high 80s, they are normally 89, but today they were in the low 80s which prompted ivet to see his PCP, who sent him to the ED. He says that in the ED at [place] they gave him lasix, breathing treatment, and repleted magnesium. He reports he feels more comfortable currently, and his breathing is easier. Does note wheezing and cough. Denies fevers although never checked his temperature. Endorses chills, and dyspnea. Denies chest pain, abdominal pain, constipation/diarrhea, weakness, syncope, dysphagia or PULLIAM. SH: lives at home with mom and sister. Former smoker. No Etoh/drug use. Notes he does have an active POLST form - does not desire heroic measures but agrees to antibiotics if it meant more comfort and ability to remain at home. Allergies Allergy/AdvReac Type Severity Reaction Status Date / Time No Known Allergies Allergy Verified 01/16/19 09:03 Home Medications Home Medications Medication Instructions Recorded Confirmed Type Oxygen Home #1 ea 06/30/18 08/30/18 Rx albuterol sulfate 2 puff INHALATION QID PRN 01/25/19 01/25/19 History apixaban [Eliquis] 5 mg PO BID 01/25/19 01/25/19 History buspirone 7.5 mg PO BID 01/25/19 01/25/19 History carvedilol [Coreg] 6.25 mg PO BID 01/25/19 01/25/19 History citalopram 20 mg PO DAILY 01/25/19 01/25/19 History clonazepam 1 mg PO BID 01/25/19 01/25/19 History folic acid 1 mg PO DAILY 01/25/19 01/25/19 History furosemide 20 mg PO DAILY 01/25/19 01/25/19 History mirtazapine 15 mg PO HS 01/25/19 01/25/19 History ondansetron 8 mg PO Q8H PRN 01/25/19 01/25/19 History oxycodone 10 mg PO QID PRN 01/25/19 01/25/19 History pravastatin 20 mg PO DAILY 01/25/19 01/25/19 History prochlorperazine maleate 10 mg PO Q6H PRN 01/25/19 01/25/19 History Past Med/Surg History Social History Preferred Language: Marshallese Communication Ability: Effective Family Services Coordinator Required: No Beliefs That Will Affect Care: None Current Living Situation: Parent Other Information That Helps Us Care for You: No Feels Safe at Home: Yes Safety Concerns: Feels Safe At This Time Smoking Status: Former smoker Tobacco Type: cigarettes ; Second Hand Exposure: Yes ; Hx Alcohol Use: No Hx Substance Use: No Review of Systems Review of Systems: Denies fevers although never checked his temperature. Endorses chills, and dyspnea. Denies chest pain, abdominal pain, constipation/diarrhea, weakness, syncope, dysphagia or PULLIAM. Physical Exam Physical Exam: Vitals noted and within normal limits with the exception of sinus tachycardia on monitor, saturating at 97% on 2.5 L, afebrile, normotensive. GENERAL: Awake, alert to person, place, and time, cachexic-appearing, in no distress. HENT: Normocephalic, atraumatic. Nasal cannula in place. EYES: Normal conjunctiva. Sclera non-icteric. EOMI. NECK: Supple. Full range of motion. RESPIRATORY: Diffuse wheezes heard bilaterally. Slightly increased work of breathing, intermittent coughing and wheezing. CARDIAC: Sinus tachycardia on monitor. Extremities warm and well perfused. ABDOMEN: Soft, non-distended. No tenderness to palpation. LOWER EXTREMITIES: Inspection of calves reveal equal size bilaterally. They are non-tender. No edema. No discoloration. NEURO: No gross focal motor deficits noted. Sensation in tact. CN II-XII grossly in tact. SKIN: Rash not present. No jaundice noted. PSYCH: Appropriate mood and affect. Cooperative. Exam as done by Hetal Pereira MD, Senior Software Test Engineer. Results & Data Vital Signs (Past 12 Hours) Vital Signs Temp Pulse Resp BP BP Pulse Ox 01/25/19 21:28 36.3 C L 108 H 24 85/57 L 106/60 92 Code Status & VTE Plan VTE Prophylaxis Plan VTE Prophylaxis will be ordered: Yes Supervising Physician Co-Signing Physician Notes Patient was seen and examined by me personally. I reviewed the chart, the orders and discussed the case in detail with Dr. Hetal Pereira MD . I read this H&P and agree with its contents to entirety. Resident Activity Tracking Resident Involvement: Resident Care Provided Care Provided: Adult Hospital Medicine
[2019-01-25] MEDS ORDERED: OXYCODONE HCL IR 5 MG TAB (IMMEDIATE RELEASE) PO PRN (23:28)
[2019-01-25] MEDS ORDERED: SODIUM CHLOR 0.45% + 20MEQ KCL 20 MEQ/1,000 ML BAG IV SCH (23:30)
[2019-01-25] MEDS: BUSPIRONE HCL 7.5 MG TAB PO SCH (23:36)
[2019-01-25] MEDS: clonazePAM 1 MG TAB PO SCH (23:36)
[2019-01-25] MEDS: APIXABAN 5 MG TABLET PO SCH (23:37)
[2019-01-25] MEDS: MIRTAZAPINE SOLTAB 15 MG PO SCH (23:37)
[2019-01-25] MEDS: cefTRIAXone SODIUM 1,000 MG in DEXTROSE 5% 50 ML IV SCH (23:37)
[2019-01-25] MEDS: methylPREDNISolone 60 MG in SYRINGE 0 ML IV SCH (23:37)
[2019-01-25] MEDS: carvediloL 6.25 MG TAB PO SCH (23:51)
--- NOTE | 2019-01-26 04:23 | Billing Data ---
Coding Level of Care Code 15316 Initial Inpt Care Lvl 3
[2019-01-26 05:59] LABS: Basophils # (auto) 0.01 K/uL (0-0.2); Basophils % (auto) 0.1 %; Hematocrit (blood only) 30.2 % (42-52); Hemoglobin 9.6 g/dL (14.0-18.0); Immature Granulocytes # (auto) 0.12 K/uL (0.00-0.02); Lymphocytes # (auto) 0.26 K/uL (1.2-3.4); Lymphocytes % (auto) 2.2 %; Mean Corpuscular Hemoglobin 30.1 pg (25-34); Mean Corpuscular Hgb Conc 31.8 g/dL (32-36); Mean Corpuscular Volume 94.7 fL (80-100); Mean Platelet Volume 10.5 fL (7.4-10.4); Monocytes # (auto) 0.42 K/uL (0.11-0.59); Monocytes % (auto) 3.5 %; Neutrophils # (auto) 11.18 K/uL (1.4-6.5); Neutrophils % (auto) 93.2 %; Platelet Count 192 K/uL (130-400); RDW Coefficient of Variation 16.1 % (11.5-14.5); RDW Standard Deviation 55.6 fL (36.4-46.3); Red Blood Count 3.19 M/uL (4.7-6.1); White Blood Count 11.99 K/uL (4.8-10.8)
[2019-01-26 06:25] LABS: BUN Creatinine Ratio 17.2 (10-20); Calcium 8.6 mg/dl (8.5-10.1); Creatinine Clr Calc Pharmacy 56.8 ml/min; Est GFR (African American) 72.8; Est GFR (Non-African American) 62.8; Magnesium 1.5 mg/dl (1.8-2.4); Potassium 3.4 mmol/L (3.5-5.1)
[2019-01-26] MEDS: ALBUT/IPRATROP 3MG/0.5MG NEB 3 ML VIAL NEB SCH ×4 (06:59→19:25)
[2019-01-26] MEDS: carvediloL 6.25 MG TAB PO SCH ×2 (08:08→21:39)
[2019-01-26] MEDS: BUSPIRONE HCL 7.5 MG TAB PO SCH ×2 (08:08→21:39)
[2019-01-26] MEDS: methylPREDNISolone 60 MG in SYRINGE 0 ML IV SCH (08:08)
[2019-01-26] MEDS: APIXABAN 5 MG TABLET PO SCH ×2 (08:09→21:38)
[2019-01-26] MEDS: FUROSEMIDE 20 MG TAB PO SCH (08:09)
[2019-01-26] MEDS: PRAVASTATIN SOD 20 MG TAB PO SCH (08:09)
[2019-01-26] MEDS: CITALOPRAM 20 MG TAB PO SCH (08:09)
[2019-01-26] MEDS: MAGNESIUM SULFATE / D5W 1 GM/100 ML BAG IV SCH ×2 (08:09→09:30)
[2019-01-26] MEDS: clonazePAM 1 MG TAB PO SCH ×2 (08:18→21:38)
--- NOTE | 2019-01-26 08:39 | XRay Report ---
XR chest 1V portable HISTORY: hypoxia COMPARISON: Outside hospital chest CTA 01/25/2019. FINDINGS: No pneumothorax. The heart is normal in size. Patchy right lower lung zone airspace opaciti es are again noted. Trace right pleural effusion and a small to moderate left pleural effusion persis ts. Left lower lobe consolidation is also noted. IMPRESSION: No change in the bilateral lower lobe airspace opacities and bilateral pleural effusions, left greate r than right. This likely represents a pneumonia. Recommend follow-up to ensure resolution. Electronically signed by: Tyler Beltre M.D. 01/26/2019 8:38 AM
--- NOTE | 2019-01-26 08:50 | Hospitalist Progress Note ---
Date of Service January 26, 2019 Assessment & Plan (1) Pneumonia: CXR with bilateral lower lobe infiltrates, small effusions will continue Rocephin/Zithromax for 7 day course WBC minimally elevated, vitals stable, no signs of sepsis certainly immunocompromised with chemotherapy (2) Chronic respiratory failure with hypoxia: continue 2L NC, no increased distress or increased oxygen requirements currently (3) COPD exacerbation: wheezing on exam, more on right side continue Solu Medrol 60 q8, will transition to Prednisone either tomorrow or Monday feeling a lot better continue antibiotics, Duoneb (4) Shortness of breath: see above, due to COPD exacerbation and pneumonia feeling better will need to increase activity prior to discharge (5) On home O2: Diagnosed with b/l small segmental pulmonary emboli in 07/08. On eliquis. 2L NC at baseline (6) Pancoast tumor of right lung: s/p lobectomy currently on chemotherapy, has two more sessions left, next one is this should be able to continue, consider touching base with oncology on Monday to make sure he can tolerate (7) Peripheral vascular disease: (8) Dyslipidemia: Cont home statin (9) S/P lobectomy of lung: Sees Dr. Marrufo. (10) Paroxysmal atrial fibrillation: Currently in sinus, although somewhat rapid. On chronic anticoagulation with Eliquis, this has been continued Cont home coreg can downgrade to medical floor (11) Ischemic cardiomyopathy: Cont home Coreg as below, and furosemide 20 daily (12) HTN (hypertension): cont home coreg (13) COPD (chronic obstructive pulmonary disease): Duonebs as above in exacerbation currently (14) Depression: cont home buspar celexa (15) Chronic pain: continue home oxycodone 10mg PO QID PRN (16) Chronic anticoagulation: cont home eliquis (17) Patient has active physician orders for life-sustaining treatment (POLST) form: Desires no heroic measures but does want antbiotics/fluids if would make him more comfortable and make it possible to return home eventually. Subjective patient sitting up in chair this morning, says his breathing is better today says that he has not felt well for weeks, combination of COPD and chemotherapy for lung CA his energy, appetite have been poor he has been experiencing intermittent cough with yellow sputum he says that he feels better this morning than he has felt in a long time stable on the monitor, some occasional sinus tachycardia labs with WBC 11k, Hb 9.6, platelets 192, K is 3.4, Cr 1.19, Mg 1.5 (replaced) ate well this morning no chest pain or pressure he says he has 2 chemotherapy sessions left, next one is this will downgrade to medical, d/w patient and hopeful he can go home by Monday Review of Systems Review of Systems: All systems reviewed & are unremarkable except as noted in HPI & below Constitutional: + fatigue and + weakness; no fever, no chills and no sweats Respiratory: + cough, + dyspnea and + dyspnea on exertion Cardiovascular: no chest pain and no edema Gastrointestinal: no abdominal pain, no nausea, no vomiting, no constipation and no diarrhea/loose stools Physical Exam Constitutional: WD/WN, vitals as above Eyes: PERRL, conjunctivae normal, anicteric sclerae ENMT: external ear and nose normal, oropharynx normal Neck: trachea midline, no thyromegaly Respiratory: normal respiratory effort; no respiratory distress Auscultation: + diminished lung sounds and + wheezes (predominantly right side); no crackles and no rales Cardiovascular: Rate/Rhythm: regular rhythm and + tachycardic Heart Sounds: normal S1 and normal S2; no murmur Extremities: normal capillary refill; no edema Gastrointestinal (Abdomen): normal bowel sounds, soft, nontender, no he patosplenomegaly Musculoskeletal: no cyanosis or clubbing, extremities motor strength 5/5 Skin: no rashes, warm and dry Neurologic: patellar DTR's 2+ bilat, sensation intact and PERRL, EOMI, accommodation nl, no face palsy, no dysarthria Psychiatric: A+Ox3, euthymic affect Lymphatic: no cervical or axillary lymphadenopathy Results & Data Vital Signs (Past 12 Hours) Vital Signs Temp Pulse Pulse Resp BP BP Pulse Ox 01/26/19 07:42 36.5 C 101 H 20 142/69 H 98 01/26/19 07:01 101 H 18 90 01/26/19 03:21 36.6 C 107 H 19 130/89 97 01/26/19 00:40 99 H 01/25/19 23:16 36.7 C 103 H 20 97/56 L 97 01/25/19 21:28 36.3 C L 108 H 24 85/57 L 106/60 92 Laboratory Results Laboratory Results - last 24 hr 01/26/19 01/26/19 05:27 05:27 WBC 11.99 H RBC 3.19 L Hgb 9.6 L Hct 30.2 L MCV 94.7 MCH 30.1 MCHC 31.8 L RDW Std Deviation 55.6 H RDW Coeff of Mark 16.1 H Plt Count 192 MPV 10.5 H Immature Gran % (Auto) 1.0 Neut % (Auto) 93.2 Lymph % (Auto) 2.2 [place] % (Auto) 3.5 Eos % (Auto) 0.0 Baso % (Auto) 0.1 Immature Gran # (Auto) 0.12 H Neut # (Auto) 11.18 H Lymph # (Auto) 0.26 L [place] # (Auto) 0.42 Eos # (Auto) 0.00 Baso # (Auto) 0.01 Sodium 137 Potassium 3.4 L Chloride 97 L Carbon Dioxide 35 H Anion Gap 5.0 BUN 21 H Creatinine 1.19 Est Cr Clr Drug Dosing 56.8 Est GFR ( Amer) 72.8 Est GFR (Non-Af Amer) 62.8 BUN/Creatinine Ratio 17.2 Glucose 207 H Calcium 8.6 Magnesium 1.5 L Medications Administered Current Inpatient Medications Acetaminophen (Tylenol) 650 mg PO Q4H PRN PRN Reason: Pain or Fever Stop: 02/24/19 22:37 Al Hydrox/Mg Hydrox/Simethicone (Maalox) 15 ml PO Q4H PRN PRN Reason: Dyspepsia Stop: 02/24/19 22:37 Albuterol (Duoneb) 3 ml NEB QIDR [facility] Stop: 02/25/19 06:59 Last Admin: 01/26/19 06:59 Dose: 3 ml Documented by: Apixaban (Eliquis) 5 mg PO BID [facility] Stop: 02/24/19 22:59 Last Admin: 01/26/19 08:09 Dose: 5 mg Documented by: Azithromycin (Zithromax) 250 mg PO PM [facility]; Protocol Stop: 02/02/19 20:59 Buspirone HCl (Buspar) 7.5 mg PO BID [facility] Stop: 02/24/19 22:59 Last Admin: 01/26/19 08:08 Dose: 7.5 mg Documented by: Carvedilol (Coreg) 6.25 mg PO BID [facility] Stop: 02/24/19 22:59 Last Admin: 01/26/19 08:08 Dose: 6.25 mg Documented by: Citalopram Hydrobromide (Celexa) 20 mg PO DAILY [facility] Stop: 02/25/19 08:59 Last Admin: 01/26/19 08:09 Dose: 20 mg Documented by: Clonazepam (Klonopin) 1 mg PO BID [facility] Stop: 02/24/19 22:59 Last Admin: 01/26/19 08:18 Dose: 1 mg Documented by: Furosemide (Lasix) 20 mg PO DAILY [facility] Stop: 02/26/19 08:59 Last Admin: 01/26/19 08:09 Dose: 20 mg Documented by: Ceftriaxone Sodium 1,000 mg/ (Dextrose) 50 mls @ 100 mls/hr IV Q24H [facility]; Protocol Stop: 02/01/19 22:59 Last Infusion: 01/26/19 03:54 Dose: Infused Documented by: Methylprednisolone 60 mg/ (Syringe) 0.96 mls @ 1.5 mls/min IV Q8H [facility] Stop: 02/25/19 00:00 Last Admin: 01/26/19 08:08 Dose: 1.5 mls/min Documented by: Magnesium Sulfate/Dextrose (Magnesium Sulfate / D5w) 1 gm in 100 mls @ 100 mls/hr IV Q1H [facility] Stop: 01/26/19 10:14 Last Infusion: 01/26/19 09:16 Dose: Infused Documented by: Magnesium Hydroxide (Milk Of Magnesia) 30 ml PO Q12H PRN PRN Reason: Constipation Stop: 02/24/19 22:37 Mirtazapine (Remeron Solutab) 15 mg PO HS [facility] Stop: 02/24/19 22:49 Last Admin: 01/25/19 23:37 Dose: 15 mg Documented by: Ondansetron HCl (Zofran) 4 mg IV Q6H PRN PRN Reason: Nausea Stop: 02/24/19 22:37 Oxycodone HCl (Roxicodone Immediate Rel) 10 mg PO QID PRN PRN Reason: Pain Stop: 02/08/19 23:27 Polyethylene Glycol (Miralax Powder Packet) 17 gm PO DAILY PRN PRN Reason: Constipation Stop: 02/24/19 22:37 Pravastatin Sodium (Pravachol) 20 mg PO DAILY [facility] Stop: 02/25/19 08:59 Last Admin: 01/26/19 08:09 Dose: 20 mg Documented by: PG Care Time/CCT Total # of Minutes Spent Total Time Spent with Patient: Total time spent is greater than 50% in coordination of care (as documented) at patient's floor/unit and/or counseling patient:
[2019-01-26] MEDS ORDERED: FUROSEMIDE 20 MG TAB PO SCH (09:00)
--- NOTE | 2019-01-26 12:46 | Pulmonary Consultation ---
Date of Consultation January 26, 2019 Assessment & Plan (1) Pneumonia: Impression: 68-year-old male with progressive hypoxemic respiratory failure and a progressively abnormal CT scan. The findings are consistent with progression of his underlying lung malignancy however cannot exclude a con comitant component of potential radiation pneumonitis and or infectious etiologies. Recommendation: 1. Abnormal CT scan: We will check procalcitonin. Given the possibility of radiation or chemotherapy induced pneumonitis, would recommend high-dose steroids, Solu-Medrol 125 mg every 8. Would continue antibiotics in the form of Rocephin and azithromycin pending procalcitonin. 2. COPD: The patient does not appear overtly bronchospastic currently. Steroids will be used for potential radiation pneumonitis not a COPD exacerbation. 3. Chronic hypoxemic respiratory failure: Continue oxygen titrated to keep saturations at or above 88%. The patient is DO NOT INTUBATE DO NOT RESUSCITATE which given his advancing lung malignancy certainly seems reasonable. Palliative care is appropriate and should be initiated. Defer to the medical oncology. (2) Chronic respiratory failure with hypoxia: (3) Abnormal CT scan of lung: History of Present Illness Attending Physician: Denilson Lindsey DO History of Present Illness Asked by hospitalist to evaluate this patient with known metastatic lung cancer on chemotherapy after completing palliative radiation therapy now with shortness of breath, progression of underlying malignancy, and reticulonodular infiltrates possibly infectious in etiology. History is obtained from discussion with the patient and family at bedside as well as review the patient's electronic medical record. The patient is a 68-year-old male who is followed by Dr. Corey in the outpatient setting. He has a history of non-small cell lung cancer initially diagnosed in 2009 with a recurrence in 2012. He is received palliative chemoradiation thera py. He is oxygen dependent. He presented to [facility] with increasing shortness of breath and a CT scan was performed which unfortunately demonstrated progression of his underlying malignancy. He also was noted to have infiltrates. He was transferred here for additional evaluation and care. He is not yet been seen by medical oncology. The patient does not report significant cough. He is not producing phlegm. No hemoptysis. He does have advanced directives in place indicating that he would not want to be intubated or have ACLS measures undertaken. Allergies Allergy/AdvReac Type Severity Reaction Status Date / Time No Known Allergies Allergy Verified 01/16/19 09:03 Home Medications Home Medications Medication Instructions Recorded Confirmed Type Oxygen Home #1 ea 06/30/18 08/30/18 Rx albuterol sulfate 2 puff INHALATION QID PRN 01/25/19 01/25/19 History apixaban [Eliquis] 5 mg PO BID 01/25/19 01/25/19 History buspirone 7.5 mg PO BID 01/25/19 01/25/19 History carvedilol [Coreg] 6.25 mg PO BID 01/25/19 01/25/19 History citalopram 20 mg PO DAILY 01/25/19 01/25/19 History clonazepam 1 mg PO BID 01/25/19 01/25/19 History folic acid 1 mg PO DAILY 01/25/19 01/25/19 History furosemide 20 mg PO DAILY 01/25/19 01/25/19 History mirtazapine 15 mg PO HS 01/25/19 01/25/19 History ondansetron 8 mg PO Q8H PRN 01/25/19 01/25/19 History oxycodone 10 mg PO QID PRN 01/25/19 01/25/19 History pravastatin 20 mg PO DAILY 01/25/19 01/25/19 History prochlorperazine maleate 10 mg PO Q6H PRN 01/25/19 01/25/19 History Patient History Social History Preferred Language: [place] Islander Communication Ability: Effective Corporate Vp Advertising & Online Required: No Beliefs That Will Affect Care: None Current Living Situation: Parent Other Information That Helps Us Care for You: No Feels Safe at Home: Yes Safety Concerns: Feels Safe At This Time Smoking Status: Former smoker Tobacco Type: cigarettes ; Second Hand Exposure: Yes ; Hx Alcohol Use: No Hx Substance Use: No Review of Systems Review of Systems: Please refer to the admission H&P. I have no additions or deletions. Physical Exam Constitutional: + ill appearing and + cachectic Neck: trachea midline, no thyromegaly Respiratory: Coarse rhonchi bilaterally. No wheezing Cardiovascular: RRR, no murmur, no edema Gastrointestinal (Abdomen): normal bowel sounds, soft, nontender, no hepatosplenomegaly Musculoskeletal: Extremities: extremities normal to inspection Skin: no rashes, warm and dry Neurologic: Nonfocal exam Lymphatic: no cervical lymphadenopathy Results & Data Vital Signs (Past 12 Hours) Vital Signs Temp Pulse Pulse Resp BP BP Pulse Ox 01/26/19 11:09 67 20 98 01/26/19 07:42 36.5 C 101 H 20 142/69 H 98 01/26/19 07:01 101 H 18 90 01/26/19 03:21 36.6 C 107 H 19 130/89 97 01/26/19 00:40 99 H Laboratory Results 01/26/19 05:27 01/26/19 05:[address] of the chest from [facility] was reviewed and compared to prior CT scan from August of this year. There has been progression of the left hilar mass with now occlusion of the superior segment and some of the basilar lower lobe. There are increased interstitial markings on the right base. Several pulmonary nodules appear to have increased in size. PG Care Time/CCT Total # of Minutes Spent Total Time Spent with Patient: Total time spent is greater than 50% in coordination of care (as documented) at patient's floor/unit and/or counseling patient:
[2019-01-26] MEDS: methylPREDNISolone 125 MG in SYRINGE 0 ML IV SCH ×2 (14:20→21:35)
[2019-01-26] MEDS: POTASSIUM CHLORIDE 10 MEQ TABCR PO SCH ×2 (17:14→22:28)
[2019-01-26] MEDS: cefTRIAXone SODIUM 1,000 MG in DEXTROSE 5% 50 ML IV SCH (21:36)
[2019-01-26] MEDS: MIRTAZAPINE SOLTAB 15 MG PO SCH (21:38)
[2019-01-26] MEDS: AZITHROMYCIN 250 MG TAB PO SCH (21:41)
[2019-01-27] MEDS: methylPREDNISolone 125 MG in SYRINGE 0 ML IV SCH (05:06)
[2019-01-27] MEDS: ALBUT/IPRATROP 3MG/0.5MG NEB 3 ML VIAL NEB SCH ×4 (07:47→18:55)
[2019-01-27] MEDS: POTASSIUM CHLORIDE 10 MEQ TABCR PO SCH ×2 (08:26→20:31)
[2019-01-27] MEDS: BUSPIRONE HCL 7.5 MG TAB PO SCH ×2 (08:27→20:31)
[2019-01-27] MEDS: APIXABAN 5 MG TABLET PO SCH ×2 (08:27→20:32)
[2019-01-27] MEDS: PRAVASTATIN SOD 20 MG TAB PO SCH (08:27)
[2019-01-27] MEDS: FUROSEMIDE 20 MG TAB PO SCH (08:27)
[2019-01-27] MEDS: carvediloL 6.25 MG TAB PO SCH ×2 (08:27→20:30)
[2019-01-27] MEDS: CITALOPRAM 20 MG TAB PO SCH (08:27)
[2019-01-27] MEDS: clonazePAM 1 MG TAB PO SCH ×2 (08:35→20:30)
--- NOTE | 2019-01-27 11:34 | Hospitalist Progress Note ---
Date of Service January 27, 2019 Assessment & Plan (1) Pneumonia: CXR with bilateral lower lobe infiltrates, small effusions CT chest with some changes in lower lobes, could also be consistent with pneumonitis after radiation will continue Rocephin/Zithromax for 5 day course procalcitonin this AM is normal WBC minimally elevated yesterday, vitals stable, no signs of sepsis certainly immunocompromised with chemotherapy (2) Pneumonitis: likely due to radiation will treat with Solu Medrol 125mg q8 plan to d/c on high dose Prednisone, prolonged course with slow taper breathing better this AM (3) Chronic respiratory failure with hypoxia: continue 2L NC, no increased distress or increased oxygen requirements currently hypoxia due to pneumonitis, pneumonia, COPD, lung CA use oxygen at home for comfort, palliative care (4) COPD exacerbation: wheezing resolved today continue Solu Medrol 125 q8, high doses are more for pneumonitis long Prednisone taper on discharge feeling a lot better continue antibiotics, Duoneb (5) Shortness of breath: see above, due to COPD exacerbation and pneumonia feeling better (6) On home O2: Diagnosed with b/l small segmental pulmonary emboli in 07/08. On eliquis. 2L NC at baseline (7) Pancoast tumor of right lung: s/p lobectomy currently on chemotherapy, has two more sessions left, next one is this CT shows progression of disease both in left lower lobe and then some lymphange tic spread into right lower lobe poor prognosis, Dr. 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 Marrufo. (11) Paroxysmal atrial fibrillation: Currently in sinus tach rates in 100s On chronic anticoagulation with Eliquis, this has been continued Cont home coreg (12) Ischemic cardiomyopathy: Cont home Coreg as below, and furosemide 20 daily (13) HTN (hypertension): cont home coreg (14) COPD (chronic obstructive pulmonary disease): Duonebs as above in exacerbation currently (15) Depression: cont home buspar, celexa (16) Chronic pain: continue home oxycodone 10mg PO QID PRN (17) Chronic anticoagulation: cont home eliquis (18) Patient has active physician orders for life-sustaining treatment (POLST) form: Desires no heroic measures but does want antbiotics/fluids if would make him more comfortable and make it possible to return home eventually. Subjective patient feeling okay this morning, breathing easier, less coughing, no chest pain today discussed the plan for steroids for pneumonitis asking when he will get out, discussed that likely it will be Monday procalcitonin low at 0.4 this morning, makes ongoing bacterial infection less likely no other labs he is eating well, ate his entire breakfast no nausea/vomiting, no constipation, no diarrhea updated his sister yesterday about plans for palliative care, will see tomorrow Review of Systems Review of Systems: All systems reviewed & are unremarkable except as noted in HPI & below Physical Exam Constitutional: WD/WN, vitals as above Eyes: PERRL, conjunctivae normal, anicteric sclerae ENMT: external ear and nose normal, oropharynx normal Neck: trachea midline, no thyromegaly Respiratory: normal respiratory effort; no respiratory distress Auscultation: + diminished lung sounds; no crackles and no rales Cardiovascular: Rate/Rhythm: regular rhythm and + tachycardic Heart Sounds: normal S1 and normal S2; no murmur Extremities: normal capillary refill; no edema Gastrointestinal (Abdomen): normal bowel sounds, soft, nontender, no hepatosplenomegaly Musculoskeletal: no cyanosis or clubbing, extremities motor strength 5/5 Skin: no rashes, warm and dry Neurologic: patellar DTR's 2+ bilat, sensation intact and PERRL, EOMI, accommodation nl, no face palsy, no dysarthria Psychiatric: A+Ox3, euthymic affect Lymphatic: no cervical or axillary lymphadenopathy Results & Data Vital Signs (Past 12 Hours) Vital Signs Temp Pulse Resp BP Pulse Ox 01/27/19 07:51 36.4 C L 100 H 20 115/72 99 01/27/19 07:49 92 H 16 97 01/27/19 04:25 36.4 C L 98 H 20 114/72 96 Laboratory Results Laboratory Results - last 24 hr 01/26/19 13:05 Procalcitonin 0.40 Medications Administered Current Inpatient Medications Acetaminophen (Tylenol) 650 mg PO Q4H PRN PRN Reason: Pain or Fever Stop: 02/24/19 22:37 Al Hydrox/Mg Hydrox/Simethicone (Maalox) 15 ml PO Q4H PRN PRN Reason: Dyspepsia Stop: 02/24/19 22:37 Albuterol (Duoneb) 3 ml NEB QIDR [facility] Stop: 02/25/19 06:59 Last Admin: 01/27/19 07:47 Dose: 3 ml Documented by: Apixaban (Eliquis) 5 mg PO BID [facility] Stop: 02/24/19 22:59 Last Admin: 01/27/19 08:27 Dose: 5 mg Documented by: Azithromycin (Zithromax) 250 mg PO PM [facility]; Protocol Stop: 02/02/19 20:59 Last Admin: 01/26/19 21:41 Dose: 250 mg Documented by: Buspirone HCl (Buspar) 7.5 mg PO BID [facility] Stop: 02/24/19 22:59 Last Admin: 01/27/19 08:27 Dose: 7.5 mg Documented by: Carvedilol (Coreg) 6.25 mg PO BID [facility] Stop: 02/24/19 22:59 Last Admin: 01/27/19 08:27 Dose: 6.25 mg Documented by: Citalopram Hydrobromide (Celexa) 20 mg PO DAILY [facility] Stop: 02/25/19 08:59 Last Admin: 01/27/19 08:27 Dose: 20 mg Documented by: Clonazepam (Klonopin) 1 mg PO BID [facility] Stop: 02/24/19 22:59 Last Admin: 01/27/19 08:35 Dose: 1 mg Documented by: Furosemide (Lasix) 20 mg PO DAILY [facility] Stop: 02/26/19 08:59 Last Admin: 01/27/19 08:27 Dose: 20 mg Documented by: Ceftriaxone Sodium 1,000 mg/ (Dextrose) 50 mls @ 100 mls/hr IV Q24H [facility]; Protocol Stop: 02/01/19 22:59 Last Infusion: 01/26/19 22:08 Dose: Infused Documented by: Methylprednisolone 125 mg/ (Syringe) 2 mls @ 1.5 mls/min IV Q8 [facility] Stop: 02/25/19 13:59 Last Admin: 01/27/19 05:06 Dose: 1.5 mls/min Documented by: Magnesium Hydroxide (Milk Of Magnesia) 30 ml PO Q12H PRN PRN Reason: Constipation Stop: 02/24/19 22:37 Mirtazapine (Remeron Solutab) 15 mg PO HS [facility] Stop: 02/24/19 22:49 Last Admin: 01/26/19 21:38 Dose: 15 mg Documented by: Ondansetron HCl (Zofran) 4 mg IV Q6H PRN PRN Reason: Nausea Stop: 02/24/19 22:37 Oxycodone HCl (Roxicodone Immediate Rel) 10 mg PO QID PRN PRN Reason: Pain Stop: 02/08/19 23:27 Polyethylene Glycol (Miralax Powder Packet) 17 gm PO DAILY PRN PRN Reason: Constipation Stop: 02/24/19 22:37 Potassium Chloride (Klor-Con M10) 10 meq PO BID [facility] Stop: 02/25/19 15:59 Last Admin: 01/27/19 08:26 Dose: 10 meq Documented by: Pravastatin Sodium (Pravachol) 20 mg PO DAILY [facility] Stop: 02/25/19 08:59 Last Admin: 01/27/19 08:27 Dose: 20 mg Documented by: PG Care Time/CCT Total # of Minutes Spent Total Time Spent with Patient: Total time spent is greater than 50% in coordination of care (as documented) at patient's floor/unit and/or counseling patient:
--- NOTE | 2019-01-27 12:21 | Pulmonology Progress Note ---
Date of Service January 27, 2019 Assessment & Plan (1) Pneumonia: Impression: 68-year-old male with progressive hypoxemic respiratory failure and a progressively abnormal CT scan. The findings are consistent with progression of his underlying lung malignancy however cannot exclude a concomi tant component of potential radiation pneumonitis and or infectious etiologies. Recommendation: 1. Abnormal CT scan: Procalcitonin normal and from a pulmonary perspective think we can de-escalate antibiotics to oral Ceftin and azithromycin. His radiation pneumonitis remains on the differential would continue steroids but can transition from Solu-Medrol to prednisone with plans for a taper over the next 6 weeks. 2. COPD: The patient does not appear overtly bronchospastic currently. Steroids will be used for potential radiation pneumonitis not a COPD exacerbation. Continue inhalers as needed 3. Chronic hypoxemic respiratory failure: Continue oxygen titrated to keep saturations at or above 88%. CT scan does demonstrate collapse of the left lower lobe now which likely represents progression of disease. There is no role for bronchoscopy currently as this is extrinsic compression. Would not pursue stenting. Palliative care is appropriate 4. Pleural effusion: Pleural effusion has been present for quite some time and likely represents malignancy. I would not pursue thoracentesis at this point time as confirmation of malignant pleural effusion would not alter management and the patient is minimally symptomatic currently. If he should develop symptoms attributable to a pleural effusion, consideration for thoracentesis may be appropriate. Plans are in place to discharge the patient home with hospice. Palliative care consultation is pending. I spent a considerable amount of time yesterday reviewing films with the patient's sisters. They understand the overall poor prognosis and are agreeable to palliative care. We will sign off at this point time. Feel free to contact us if we can be of additional assistance. (2) Chronic respiratory failure with hypoxia: (3) Abnormal CT scan of lung: Subjective Patient seen and examined. EMR reviewed. Extensive discussions with family yesterday. Patient states that he is breathing better. He is not coughing or expectorating phlegm. No hemoptysis. No fevers chills or night sweats. He is tolerating a regular diet. No significant lower extremity edema. Review of Systems Review of Systems: Unchanged from prior Physical Exam Constitutional: + ill appearing and + cachectic Neck: trachea midline, no thyromegaly Respiratory: Breath sounds diminished bilaterally without wheezing Cardiovascular: RRR, no murmur, no edema Gastrointestinal (Abdomen): normal bowel sounds, soft, nontender, no hepatosplenomegaly Musculoskeletal: Extremities: extremities normal to inspection Skin: no rashes, warm and dry Lymphatic: no cervical lymphadenopathy Results & Data Vital Signs (Past 12 Hours) Vital Signs Temp Pulse Resp BP Pulse Ox 01/27/19 11:56 36.4 C L 95 H 20 104/68 98 01/27/19 11:36 94 H 16 97 01/27/19 07:51 36.4 C L 100 H 20 115/72 99 01/27/19 07:49 92 H 16 97 01/27/19 04:25 36.4 C L 98 H 20 114/72 96 Laboratory Results 01/26/19 05:27 01/26/19 05:27 Diagnostic Findings No new films PG Care Time/CCT Total # of Minutes Spent Total Time Spent with Patient: Total time spent is greater than 50% in coordination of care (as documented) at patient's floor/unit and/or counseling patient:
[2019-01-27] MEDS: predniSONE 50 MG TAB PO SCH (13:28)
[2019-01-27] MEDS: MIRTAZAPINE SOLTAB 15 MG PO SCH (20:31)
[2019-01-27] MEDS: cefUROXime axetil 500 MG TAB PO SCH (20:32)
[2019-01-27] MEDS: AZITHROMYCIN 250 MG TAB PO SCH (20:32)
[2019-01-28] MEDS: ALBUT/IPRATROP 3MG/0.5MG NEB 3 ML VIAL NEB SCH ×5 (01:09→19:29)
[2019-01-28] MEDS: predniSONE 50 MG TAB PO SCH (08:27)
[2019-01-28] MEDS: carvediloL 6.25 MG TAB PO SCH ×2 (08:27→21:02)
[2019-01-28] MEDS: CITALOPRAM 20 MG TAB PO SCH (08:27)
[2019-01-28] MEDS: BUSPIRONE HCL 7.5 MG TAB PO SCH ×2 (08:27→21:03)
[2019-01-28] MEDS: clonazePAM 1 MG TAB PO SCH ×2 (08:27→21:02)
[2019-01-28] MEDS: POTASSIUM CHLORIDE 10 MEQ TABCR PO SCH ×2 (08:27→21:04)
[2019-01-28] MEDS: PRAVASTATIN SOD 20 MG TAB PO SCH (08:27)
[2019-01-28] MEDS: cefUROXime axetil 500 MG TAB PO SCH ×2 (08:28→21:24)
[2019-01-28] MEDS: FUROSEMIDE 20 MG TAB PO SCH (08:28)
[2019-01-28] MEDS: APIXABAN 5 MG TABLET PO SCH ×2 (08:28→21:03)
--- NOTE | 2019-01-28 12:20 | Palliative Care Consultation ---
Date of Consultation January 28, 2019 Assessment & Plan (1) Goals of care, counseling/discussion: This is a 68 year old who presented to the [facility] with increasing SOB, which was found to be progressive worsening malignant infiltrates. Additional PMH includes:CAD s/p AMI 2008, HTN, HLD, COPD on 2LNC hoem Oxygen, and RUL lung Cancer diagnosed in 2009 and recurrent RLL lung ca in 2012 s/p resection, chemotherapy, radiation. A chest CT was performed and indicated progressive hypoxemic respiratory failure, which per pulmonary, are consistent with worsening underlying lung malignancy. Additionally, the patients LLL appears to be partially collapsed, which is likely related to disease progression as well. The patient also has pleural effusions which, again, appears to be related to malignancy and as the patient is not extremely dyspnic, no thoracentesis is currently recommended. Pt is receiving steroids and abx for treatment. Pulmonary spent a great deal of time over the weekend providing details to family members, along with reviewing imaging as well, all while discussing his poor prognosis. Palliative Care was consulted to discuss goals of care. -I met with the patient in room 450-1. The patient is AAO x 3. during my encounter. -He states that he lives with his mother and sister, Royer (who helps take care of him). He states that his bedroom is on the top floor of their house. -We discussed his current medical condition and symptoms he is experiencing. While I was in the room, he was able to independently move his body from lying to sitting at the side of the bed to eat his lunch, which he did independently. -He said that his breathing is worsening overall with increased wheezing He says that any further chemo "just scares me" and he would rather go home and spend the rest of his days there. -We talked at length about hospice services and what that entails. He is agreeable to Hospice coming into his home. He completed a POLST form at the bedside indicating DNR/DNI, [employer] [place], trial abx (ok to continue current regiment), and no artificial tube feedings, but ok for some supplemental hydration if it provides comfort, but does not want life prolonged. -With the patietns permission, I spoke with the patients sister on the phone who stated that their mother has cancer as well and just came home today from the hospital. She then went into details about her own medical ailments. We talked at length about the care needs that her brother may have now and in the future. We talked about SNF vs home with hospice and I suggested the possibility of him going to a SNF for management and then transferring home in the future. She said that a SNF would be ok with her if it was with him. I returned to speak with the patient and he said "I am going to go home, I can still get around" -The patients sister called me on the phone later in the afternoon stating that her brother was very abrupt with her on the phone saying that he is going home. -Ultimately, I do think a SNF is a better/safer option for him. We did confirm that a hospital bed would need to be placed on the first floor, which they said could be done. -For now, Royer stated that he can come home and he will be cared for by her as needed as long as he can go over the next few days home. -For now, a referral is to be placed to [facility]. Their mother has [facility] and they have talked to her about this already. -From a symptom management standpoint, he has Oxy IR 10 mg Q4 PRN ordered. Pending response to medications, could change his discharge plans. -Will continue to reassess case over next few days, all while providing support to the patient and family. Once patient starts to receive additional pain management, he could decline rapidly. Patient currently not a GIP candidate as symptom needs are currently met. -PPS: 30% (2) Recurrent carcinoma of right lung: (3) Shortness of breath: (4) Chronic respiratory failure with hypoxia: (5) Anxiety: Supervising Physician Co-Signing Physician Notes Late entry for visit and exam done on 01/28. Collaborated with CURLY Gamez Patient seen and examined, his niece and a friend at bedside. Reviewed plan of care with patient. PE: Patient awake and alert, no acute distress-on O2 at 2 L nasal cannula HEENT: EOMI, hearing within normal limits Respiratory: Diminished breath sounds bilaterally, bilateral wheezes, respirations slightly labored, increased with conversation CV: Tachycardic Abdomen: Not distended Neuro: Alert and oriented Agree with above note, assessment and plan as per CURLY Gamez-Plan is to return home with hospice care with family. History of Present Illness Reason for Consultation: goals of care Requesting Physician: Dr. Lindsey Attending Physician: Denilson Lindsey DO History of Present Illness This is a 68 year old who presented to the [facility] with increasing SOB, which was found to be progressive worsening malignant infiltrates. Additional PMH includes:CAD s/p AMI 2008, HTN, HLD, COPD on 2LNC hoem Oxygen, and RUL lung Cancer diagnosed in 2009 and recurrent RLL lung ca in 2012 s/p resection, chemotherapy, radiation.Palliative Care was consulted to discuss goals of care. Please see A/P for further details. Thank you kindly for involving the palliative care team with this patient. We will continue to follow and assist with decision making and symptom management. Allergies Allergy/AdvReac Type Severity Reaction Status Date / Time No Known Allergies Allergy Verified 01/16/19 09:03 Home Medications Home Medications Medication Instructions Recorded Confirmed Type Oxygen Home #1 ea 06/30/18 01/28/19 Rx albuterol sulfate 2 puff INHALATION QID PRN 01/25/19 01/25/19 History apixaban [Eliquis] 5 mg PO BID 01/25/19 01/25/19 History buspirone 7.5 mg PO BID 01/25/19 01/25/19 History carvedilol [Coreg] 6.25 mg PO BID 01/25/19 01/25/19 History citalopram 20 mg PO DAILY 01/25/19 01/25/19 History clonazepam 1 mg PO BID 01/25/19 01/25/19 History folic acid 1 mg PO DAILY 01/25/19 01/25/19 History furosemide 20 mg PO DAILY 01/25/19 01/25/19 History mirtazapine 15 mg PO HS 01/25/19 01/25/19 History ondansetron 8 mg PO Q8H PRN 01/25/19 01/25/19 History oxycodone 10 mg PO QID PRN 01/25/19 01/25/19 History pravastatin 20 mg PO DAILY 01/25/19 01/25/19 History prochlorperazine maleate 10 mg PO Q6H PRN 01/25/19 01/25/19 History Patient History Medical History (Updated 01/28/19 @ 13:04 by Denilson Lindsey DO) Bilateral pulmonary embolism (Chronic) Chronic pain (Chronic) COPD (chronic obstructive pulmonary disease) (Chronic) Coronary artery disease (Chronic) Depression (Chronic) Dyslipidemia (Chronic) Goals of care, counseling/discussion HTN (hypertension) (Chronic) Ischemic cardiomyopathy (Chronic) Lung mass (Chronic) Myocardial infarct, old (Chronic) Pancoast tumor of right lung (Chronic) Paroxysmal atrial fibrillation (Chronic) Peripheral vascular disease (Chronic) Right shoulder pain (Acute) Surgical History S/P cardiac catheterization (Chronic) S/P lobectomy of lung (Resolved) Social History Preferred Language: [place] Communication Ability: Effective 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 Beliefs That Will Affect Care: None marital status: Single Current Living Situation: Parent Feels Safe at Home: Yes Smoking Status: Former smoker Tobacco Type: cigarettes ; Second Hand Exposure: Yes ; Hx Alcohol Use: No Hx Substance Use: No Review of Systems Review of Systems: General: (+) weakness HEENT: (-) dizziness, P[place], visual changes CV: (-) chest pain, palpitations Resp: + cough, + wheeze, + SOB GI: (-) N/V/D Psych: (-) depression Physical Exam Constitutional: + acute distress, + ill appearing, + thin and cooperative Respiratory: + labored breathing, + uses accessory muscles, + cough and able to speak in complete sentences Auscultation: + wheezes (expiratory ) Gastrointestinal (Abdomen): normal bowel sounds, soft, nontender, no h epatosplenomegaly Skin: no rashes, warm and dry + dry skin and + ecchymosis Psychiatric: Eye Contact: + fair eye contact Insight: + limited insight Judgement: + limited judgement Results & Data Vital Signs (Past 12 Hours) Vital Signs Temp Pulse Pulse Resp BP Pulse Ox 01/28/19 11:31 98 H 20 97 01/28/19 07:30 115 H 20 97 01/28/19 06:45 36.6 C 106 H 22 136/77 97 01/28/19 03:20 36.6 C 111 H 20 129/81 97 01/28/19 01:10 111 H 18 98 PG Care Time/CCT Total # of Minutes Spent Total Time Spent with Patient: Total time spent is greater than 50% in coordination of care (as documented) at patient's floor/unit and/or counseling patient: 70 Time Spent Midlevel Total time spent 70 minutes with > 50% of that time spent assessing the patient, discussing goals of care, completing a POLST form and providing symptom management.
--- NOTE | 2019-01-28 13:05 | Hospitalist Progress Note ---
Date of Service January 28, 2019 Assessment & Plan (1) Pneumonia: CXR with bilateral lower lobe infiltrates, small effusions CT chest with some changes in lower lobes, could also be consistent with pneumonitis after radiation will continue Rocephin/Zithromax for 5 day course, today is day three procalcitonin normal on 01/27 WBC minimally elevated when last checked, vitals stable, no signs of sepsis certainly immunocompromised with chemotherapy (2) Pneumonitis: likely due to radiation will treat with Solu Medrol 125mg q8 plan to d/c on high dose Prednisone, prolonged course with slow taper breathing better today (3) Chronic respiratory failure with hypoxia: continue 2L NC, no increased distress or increased oxygen requirements currently hypoxia due to pneumonitis, pneumonia, COPD, lung CA use oxygen at home for comfort, palliative care (4) COPD exacerbation: wheezing resolved continue Solu Medrol 125 q8, high doses are more for pneumonitis long Prednisone taper on discharge feeling a lot better continue antibiotics, Duoneb (5) Shortness of breath: see above, due to COPD exacerbation and pneumonia feeling better (6) On home O2: Diagnosed with b/l small segmental pulmonary emboli in 07/08. On eliquis. 2L NC at baseline (7) Pancoast tumor of right lung: s/p lobectomy no further treatment planned, will go home on hospice sister making arrangements for this palliative care following CT shows progression of disease both in left lower lobe and then some lymphangetic spread into right lower lobe poor prognosis, Dr. Corey recommends palliative approach (8) Peripheral vascular disease: (9) Dyslipidemia: Cont home statin (10) S/P lobectomy of lung: Sees Dr. Marrufo. (11) Paroxysmal atrial fibrillation: Currently in sinus tach rates in 100s On chronic anticoagulation with Eliquis, this has been continued Cont home coreg (12) Ischemic cardiomyopathy: Cont home Coreg as below, and furosemide 20 daily (13) HTN (hypertension): cont home coreg (14) COPD (chronic obstructive pulmonary disease): Duonebs as above in exacerbation currently (15) Depression: cont home buspar, celexa (16) Chronic pain: continue home oxycodone 10mg PO QID PRN (17) Chronic anticoagulation: cont home eliquis (18) Patient has active physician orders for life-sustaining treatment (POLST) form: Desires no heroic measures but does want antbiotics/fluids if would make him more comfortable and make it possible to return home eventually. (19) Severe protein-calorie malnutrition: eating well, encourage more protein intake Subjective patient resting comfortably, breathing stable eating really well, able to sit up at the edge of the bed palliative care met with patient and spoke with his sister over the phone patients mother is hospitalized currently hoping to get patient home by end of the week discussed plan with case management per RN, patient having some episodes of increased dyspnea although saturations not dropping will start on Roxanol while here to give him relief Review of Systems Review of Systems: All systems reviewed & are unremarkable except as noted in HPI & below Constitutional: + fatigue and + weakness; no fever, no chills and no sweats Respiratory: + cough, + dyspnea and + dyspnea on exertion; no hemoptysis and no wheezing Cardiovascular: no chest pain and no edema Gastrointestinal: no abdominal pain, no nausea, no vomiting, no constipation and no diarrhea/loose stools Physical Exam Constitutional: WD/WN, vitals as above Eyes: PERRL, conjunctivae normal, anicteric sclerae ENMT: external ear and nose normal, oropharynx normal Neck: trachea midline, no thyromegaly Respiratory: normal respiratory effort; no respiratory distress Auscultati on: + diminished lung sounds; no crackles and no rales Cardiovascular: Rate/Rhythm: regular rhythm and + tachycardic Heart Sounds: normal S1 and normal S2; no murmur Extremities: normal capillary refill; no edema Gastrointestinal (Abdomen): normal bowel sounds, soft, nontender, no hepatosplenomegaly Musculoskeletal: no cyanosis or clubbing, extremities motor strength 5/5 Skin: no rashes, warm and dry Neurologic: patellar DTR's 2+ bilat, sensation intact and PERRL, EOMI, accommodation nl, no face palsy, no dysarthria Psychiatric: A+Ox3, euthymic affect Lymphatic: no cervical or axillary lymphadenopathy Results & Data Vital Signs (Past 12 Hours) Vital Signs Temp Pulse Pulse Resp BP Pulse Ox 01/28/19 11:31 98 H 20 97 01/28/19 07:30 115 H 20 97 01/28/19 06:45 36.6 C 106 H 22 136/77 97 01/28/19 03:20 36.6 C 111 H 20 129/81 97 01/28/19 01:10 111 H 18 98 Laboratory Results Laboratory Results - last 24 hr 01/28/19 09:22 Stl C. diff Tox B Gene Negative Cdiff Gene Medications Administered Current Inpatient Medications Acetaminophen (Tylenol) 650 mg PO Q4H PRN PRN Reason: Pain or Fever Stop: 02/24/19 22:37 Al Hydrox/Mg Hydrox/Simethicone (Maalox) 15 ml PO Q4H PRN PRN Reason: Dyspepsia Stop: 02/24/19 22:37 Albuterol (Duoneb) 3 ml NEB QIDR [facility] Stop: 02/25/19 06:59 Last Admin: 01/28/19 19:29 Dose: 3 ml Documented by: Apixaban (Eliquis) 5 mg PO BID [facility] Stop: 02/24/19 22:59 Last Admin: 01/28/19 21:03 Dose: 5 mg Documented by: Azithromycin (Zithromax) 250 mg PO PM [facility]; Protocol Stop: 02/02/19 20:59 Last Admin: 01/28/19 21:04 Dose: 250 mg Documented by: Buspirone HCl (Buspar) 7.5 mg PO BID [facility] Stop: 02/24/19 22:59 Last Admin: 01/28/19 21:03 Dose: 7.5 mg Documented by: Carvedilol (Coreg) 6.25 mg PO BID [facility] Stop: 02/24/19 22:59 Last Admin: 01/28/19 21:02 Dose: 6.25 mg Documented by: Cefuroxime Axetil (Ceftin) 500 mg PO BID [facility] Stop: 02/03/19 20:59 Last Admin: 01/28/19 21:24 Dose: 500 mg Documented by: Citalopram Hydrobromide (Celexa) 20 mg PO DAILY [facility] Stop: 02/25/19 08:59 Last Admin: 01/28/19 08:27 Dose: 20 mg Documented by: Clonazepam (Klonopin) 1 mg PO BID [facility] Stop: 02/24/19 22:59 Last Admin: 01/28/19 21:02 Dose: 1 mg Documented by: Furosemide (Lasix) 20 mg PO DAILY [facility] Stop: 02/26/19 08:59 Last Admin: 01/28/19 08:28 Dose: 20 mg Documented by: Magnesium Hydroxide (Milk Of Magnesia) 30 ml PO Q12H PRN PRN Reason: Constipation Stop: 02/24/19 22:37 Mirtazapine (Remeron Solutab) 15 mg PO HS [facility] Stop: 02/24/19 22:49 Last Admin: 01/28/19 21:05 Dose: 15 mg Documented by: Morphine Sulfate (Roxanol) 5 mg PO Q6 PRN PRN Reason: Dyspnea Stop: 02/11/19 15:38 Ondansetron HCl (Zofran) 4 mg IV Q6H PRN PRN Reason: Nausea Stop: 02/24/19 22:37 Oxycodone HCl (Roxicodone Immediate Rel) 10 mg PO Q4H PRN PRN Reason: Pain Stop: 02/08/19 23:27 Last Admin: 01/28/19 15:07 Dose: 10 mg Documented by: Polyethylene Glycol (Miralax Powder Packet) 17 gm PO DAILY PRN PRN Reason: Constipation Stop: 02/24/19 22:37 Potassium Chloride (Klor-Con M10) 10 meq PO BID [facility] Stop: 02/25/19 15:59 Last Admin: 01/28/19 21:04 Dose: 10 meq Documented by: Pravastatin Sodium (Pravachol) 20 mg PO DAILY [facility] Stop: 02/25/19 08:59 Last Admin: 01/28/19 08:27 Dose: 20 mg Documented by: Prednisone (Prednisone) 50 mg PO DAILY [facility] Stop: 02/26/19 12:29 Last Admin: 01/28/19 08:27 Dose: 50 mg Documented by: PG Care Time/CCT Total # of Minutes Spent Total Time Spent with Patient: Total time spent is greater than 50% in coordination of care (as documented) at patient's floor/unit and/or counseling patient:
[2019-01-28] MEDS ORDERED: OXYCODONE HCL IR 5 MG TAB (IMMEDIATE RELEASE) PO PRN (14:33)
[2019-01-28] MEDS: AZITHROMYCIN 250 MG TAB PO SCH (21:04)
[2019-01-28] MEDS: MIRTAZAPINE SOLTAB 15 MG PO SCH (21:05)
[2019-01-29] MEDS: MoRPHine SULFATE 5 MG/0.25 ML UDP PO PRN ×4 (03:26→22:48)
[2019-01-29] MEDS: ALBUT/IPRATROP 3MG/0.5MG NEB 3 ML VIAL NEB SCH ×4 (07:17→19:37)
[2019-01-29] MEDS: APIXABAN 5 MG TABLET PO SCH ×2 (08:13→20:23)
[2019-01-29] MEDS: BUSPIRONE HCL 7.5 MG TAB PO SCH ×2 (08:13→20:23)
[2019-01-29] MEDS: POTASSIUM CHLORIDE 10 MEQ TABCR PO SCH ×2 (08:13→20:24)
[2019-01-29] MEDS: predniSONE 50 MG TAB PO SCH (08:13)
[2019-01-29] MEDS: carvediloL 12.5 MG TAB PO SCH ×2 (08:13→20:23)
[2019-01-29] MEDS: CITALOPRAM 20 MG TAB PO SCH (08:14)
[2019-01-29] MEDS: cefUROXime axetil 500 MG TAB PO SCH ×2 (08:14→20:23)
[2019-01-29] MEDS: FUROSEMIDE 20 MG TAB PO SCH (08:14)
[2019-01-29] MEDS: clonazePAM 1 MG TAB PO SCH ×2 (08:17→20:23)
--- NOTE | 2019-01-29 10:34 | Palliative Care Progress Note ---
Date of Service January 29, 2019 Assessment & Plan (1) Goals of care, counseling/discussion: This is a 68 year old who presented to the [facility] with increasing SOB, which was found to be progressive worsening malignant infiltrates. Additional PMH includes:CAD s/p AMI 2008, HTN, HLD, COPD on 2LNC hoem Oxygen, and RUL lung Cancer diagnosed in 2009 and recurrent RLL lung ca in 2012 s/p resection, chemotherapy, radiation. A chest CT was performed and indicated progressive hypoxemic respiratory failure, which per pulmonary, are consistent with worsening underlying lung malignancy. Additionally, the patients LLL appears to be partially collapsed, which is likely related to disease progression as well. The patient also has pleural effusions which, again, appears to be related to malignancy and as the patient is not extremely dyspnic, no thoracentesis is currently recommended. Pt is receiving steroids and abx for treatment. Pulmonary spent a great deal of time over the weekend providing details to family members, along with reviewing imaging as well, all while discussing his poor prognosis. Palliative Care was consulted to discuss goals of care. -I met with the patient in room 450-1. The patient rested for the majority of the visit, but did open his eyes and denied having pain. -Patient sister, Royer (primary caregiver), mother, and a family friend were all at the bedside. -I spoke at length with the patient's sister regarding discharge planning, symptom management at home, and provided guidance and reassurance. -The patient was started on Roxanol 5 mg Q6 PRN, he does have some intermittent tachypnea, so I increased the frequency to Q2 hours PRN. Also, ordered Atropine gtts for any foreseeable secretions. -Ultimately, I do think a SNF is a better/safer option for him due to his mother requiring a lot of assistance at home, but his sister was a caregiver and would like to try. We did confirm that a hospital bed would need to be placed on the first floor, which they said could be done. -Referral placed yesterday to [facility] Hospice and equipment will be delivered to the patients home today. Likely plan for discharge tomorrow if all goes well. -I did set the expectation that as he requires increased medications, that he could decline rapidly based on the gravity of his disease process. 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 -Will reassess tomorrow to ensure stable for discharge. For now, the patient remains awake, alert, taking po and making urine and no forseeable hindering of discharge plan. -Patient currently not a GIP candidate as symptom needs are currently met. -PPS: 30% (2) Recurrent carcinoma of right lung: (3) Shortness of breath: (4) Chronic respiratory failure with hypoxia: (5) Anxiety: Subjective patient resting in his bed comfortably, breathing stable, no apparent signs of distress Patient opened his eyes and nodded his head to me. Pt sister, mother and friend were at the bedside. See A/P for further details Review of Systems Review of Systems: General: Patient denies pain Resp: Patient denies SOB CV: Pt denies CP Physical Exam Constitutional: + acute distress, + ill appearing, + thin and cooperative Respiratory: + labored breathing (intermittent), + cough and symmetric chest movement Auscultation: + wheezes (expiratory ) Gastrointestinal (Abdomen): normal bowel sounds, soft, nontender, no hepatosplenomegaly Skin: no rashes, warm and dry + dry skin and + ecchymosis Psychiatric: Eye Contact: + fair eye contact Insight: + limited insight Judgement: + limited judgement Results & Data Vital Signs (Past 12 Hours) Vital Signs Temp Pulse Resp BP BP Pulse Ox 01/29/19 07:17 112 H 20 93 01/29/19 07:11 36.6 C 123 H 20 152/94 H 144/100 H 92 01/29/19 03:10 36.4 C L 120 H 26 H 135/88 96 01/28/19 23:30 36.6 C 111 H 20 123/73 97 Supervising Physician Co-Signing Physician Notes Patient seen and examined, multiple friends and family at bedside including patient's sister and mother whom he lives with. Reviewed plan of care with patient and family.. PE: Patient awake and alert, no acute distress-on O2 at 2 L nasal cannula HEENT: EOMI, hearing within normal limits Respiratory: Diminished breath sounds bilaterally, bilateral wheezes, respirations slightly labored, increased with conversation CV: Tachycardic Abdomen: Not distended Neuro: Alert and oriented Agree with above note, assessment and plan as per CURLY Gamez-Plan is to return home with hospice care with family. Provided support to patient's sister who will be providing most of his care. Plan is to have the equipment delivered today and discharge home with hospice tomorrow. PG Care Time/CCT Total # of Minutes Spent Total Time Spent with Patient: Total time spent is greater than 50% in coordination of care (as documented) at patient's floor/unit and/or counseling patient: 45 Time Spent Midlevel Total time spent 45 minutes with > 50% of that time spent assessing the patient, addressing symptom management needs, and discussing goals of care and discharge planning with the patients family and IDT.
[2019-01-29] MEDS ORDERED: ATROPINE SULFATE 1% OP SOLN 2 ML BTL SL PRN (11:02)
--- NOTE | 2019-01-29 14:29 | Hospitalist Progress Note ---
Date of Service January 29, 2019 Assessment & Plan (1) Pneumonia: CXR with bilateral lower lobe infiltrates, small effusions CT chest with some changes in lower lobes, could also be consistent with pneumonitis after radiation will continue Rocephin/Zithromax for 5 day course, today is day four, will finish tomorrow, no antibiotics on discharge procalcitonin normal on 01/27 WBC minimally elevated when last checked, vitals stable, no signs of sepsis certainly immunocompromised with chemotherapy (2) Pneumonitis: likely due to radiation will treat with Prednisone 50mg daily, prolonged course with very slow taper breathing a little better each day (3) Chronic respiratory failure with hypoxia: continue 2L NC, no increased distress or increased oxygen requirements currently hypoxia due to pneumonitis, pneumonia, COPD, lung CA use oxygen at home for comfort, palliative care started on Roxanol PRN for dyspnea sensation (4) COPD exacerbation: wheezing resolved continue Prednisone at high dose which is for pneumonitis feeling a lot better continue antibiotics, Duoneb (5) Shortness of breath: see above, due to COPD exacerbation and pneumonia feeling better Roxanol PRN for dyspnea on hospice (6) On home O2: Diagnosed with b/l small segmental pulmonary emboli in 07/08. On eliquis. 2L NC at baseline (7) Pancoast tumor of right lung: s/p lobectomy no further treatment planned, will go home on hospice sister making arrangements for this palliative care following plan for home hospice tomorrow CT shows progression of disease both in left lower lobe and then some lymphangetic spread into right lower lobe poor prognosis, Dr. Corey recommends palliative approach (8) Peripheral vascular disease: (9) Dyslipidemia: Cont home statin (10) S/P lobectomy of lung: Sees Dr. Marrufo. (11) Paroxysmal atrial fibrillation: Currently in sinus tach rates in 100s On chronic anticoagulation with Eliquis, this has been continued Cont home coreg (12) Ischemic cardiomyopathy: Cont home Coreg as below, and furosemide 20 daily (13) HTN (hypertension): cont home coreg (14) COPD (chronic obstructive pulmonary disease): Duonebs as above in exacerbation currently (15) Depression: cont home buspar, celexa (16) Chronic pain: continue home oxycodone 10mg PO QID PRN (17) Chronic anticoagulation: cont home eliquis (18) Patient has active physician orders for life-sustaining treatment (POLST) form: Desires no heroic measures but does want antbiotics/fluids if would make him more comfortable and make it possible to return home eventually. home hospice tomorrow (19) Severe protein-calorie malnutrition: eating well, encourage more protein intake Subjective patient breathing a little heavier today but he denies being in distress at his baseline 2-3L NC eating pretty well, moving her bowels, no vomiting no productive cough discussed with patient and his sister and palliative care, plan to go home tomorrow family getting hospital bed and bedside commode set up no labs today Review of Systems Review of Systems: All systems reviewed & are unremarkable except as noted in HPI & below Constitutional: + fatigue and + weakness; no fever Respiratory: + cough, + dyspnea, + dyspnea on exertion and + wheezing Cardiovascular: no chest pain and no edema Gastrointestinal: no abdominal pain, no nausea, no vomiting, no constipation and no diarrhea/loose stools Physical Exam Constitutional: WD/WN, vitals as above Eyes: PERRL, conjunctivae normal, anicteric sclerae ENMT: external ear and nose normal, oropharynx normal Neck: trachea midline, no thyromegaly Respiratory: normal respiratory effort and + audible wheezes; no respiratory distress Auscultation: + diminished lung sounds; no crackles and no rales Cardiovascular: Rate/Rhythm: regular rhythm and + tachycardic Heart Sounds: normal S1 and normal S2; no murmur Extremities: normal capillary refill; no edema Gastrointestinal (Abdomen): normal bowel sounds, soft, nontender, no hepatosplenomegaly Musculoskeletal: no cyanosis or clubbing, extremities motor strength 5/5 Skin: no rashes, warm and dry Neurologic: patellar DTR's 2+ bilat, sensation intact and PERRL, EOMI, accommodation nl, no face palsy, no dysarthria Psychiatric: A+Ox3, euthymic affect Lymphatic: no cervical or axillary lymphadenopathy Results & Data Vital Signs (Past 12 Hours) Vital Signs Temp Pulse Resp BP BP Pulse Ox 01/29/19 11:53 101 H 18 97 01/29/19 07:17 112 H 20 93 01/29/19 07:11 36.6 C 123 H 20 152/94 H 144/100 H 92 01/29/19 03:10 36.4 C L 120 H 26 H 135/88 96 Medications Administered Current Inpatient Medications Acetaminophen (Tylenol) 650 mg PO Q4H PRN PRN Reason: Pain or Fever Stop: 02/24/19 22:37 Al Hydrox/Mg Hydrox/Simethicone (Maalox) 15 ml PO Q4H PRN PRN Reason: Dyspepsia Stop: 02/24/19 22:37 Albuterol (Duoneb) 3 ml NEB QIDR [facility] Stop: 02/25/19 06:59 Last Admin: 01/29/19 11:53 Dose: 3 ml Documented by: Apixaban (Eliquis) 5 mg PO BID [facility] Stop: 02/24/19 22:59 Last Admin: 01/29/19 08:13 Dose: 5 mg Documented by: Atropine Sulfate (Atropine Sulfate 1% Oph Soln) 4 drops SL Q2H PRN PRN Reason: secretions Stop: 02/28/19 11:14 Azithromycin (Zithromax) 250 mg PO PM [facility]; Protocol Stop: 02/02/19 20:59 Last Admin: 01/28/19 21:04 Dose: 250 mg Documented by: Buspirone HCl (Buspar) 7.5 mg PO BID [facility] Stop: 02/24/19 22:59 Last Admin: 01/29/19 08:13 Dose: 7.5 mg Documented by: Carvedilol (Coreg) 12.5 mg PO BID [facility] Stop: 02/28/19 08:59 Last Admin: 01/29/19 08:13 Dose: 12.5 mg Documented by: Cefuroxime Axetil (Ceftin) 500 mg PO BID [facility] Stop: 02/03/19 20:59 Last Admin: 01/29/19 08:14 Dose: 500 mg Documented by: Citalopram Hydrobromide (Celexa) 20 mg PO DAILY [facility] Stop: 02/25/19 08:59 Last Admin: 01/29/19 08:14 Dose: 20 mg Documented by: Clonazepam (Klonopin) 1 mg PO BID [facility] Stop: 02/24/19 22:59 Last Admin: 01/29/19 08:17 Dose: 1 mg Documented by: Furosemide (Lasix) 20 mg PO DAILY [facility] Stop: 02/26/19 08:59 Last Admin: 01/29/19 08:14 Dose: 20 mg Documented by: Magnesium Hydroxide (Milk Of Magnesia) 30 ml PO Q12H PRN PRN Reason: Constipation Stop: 02/24/19 22:37 Mirtazapine (Remeron Solutab) 15 mg PO HS [facility] Stop: 02/24/19 22:49 Last Admin: 01/28/19 21:05 Dose: 15 mg Documented by: Morphine Sulfate (Roxanol) 5 mg PO Q2H PRN PRN Reason: Dyspnea Stop: 02/11/19 15:38 Ondansetron HCl (Zofran) 4 mg IV Q6H PRN PRN Reason: Nausea Stop: 02/24/19 22:37 Polyethylene Glycol (Miralax Powder Packet) 17 gm PO DAILY PRN PRN Reason: Constipation Stop: 02/24/19 22:37 Potassium Chloride (Klor-Con M10) 10 meq PO BID [facility] Stop: 02/25/19 15:59 Last Admin: 01/29/19 08:13 Dose: 10 meq Documented by: Prednisone (Prednisone) 50 mg PO DAILY [facility] Stop: 02/26/19 12:29 Last Admin: 01/29/19 08:13 Dose: 50 mg Documented by: PG Care Time/CCT Total # of Minutes Spent Total Time Spent with Patient: Total time spent is greater than 50% in coordination of care (as documented) at patient's floor/unit and/or counseling p atient:
[2019-01-29] MEDS: AZITHROMYCIN 250 MG TAB PO SCH (20:24)
[2019-01-29] MEDS: MIRTAZAPINE SOLTAB 15 MG PO SCH (20:24)
[2019-01-30] MEDS: MoRPHine SULFATE 5 MG/0.25 ML UDP PO PRN (05:46)
[2019-01-30] MEDS: ALBUT/IPRATROP 3MG/0.5MG NEB 3 ML VIAL NEB SCH ×2 (07:21→11:23)
[2019-01-30] MEDS: cefUROXime axetil 500 MG TAB PO SCH (08:04)
[2019-01-30] MEDS: CITALOPRAM 20 MG TAB PO SCH (08:04)
[2019-01-30] MEDS: BUSPIRONE HCL 7.5 MG TAB PO SCH (08:04)
[2019-01-30] MEDS: clonazePAM 1 MG TAB PO SCH (08:05)
[2019-01-30] MEDS: FUROSEMIDE 20 MG TAB PO SCH (08:05)
[2019-01-30] MEDS: carvediloL 12.5 MG TAB PO SCH (08:05)
[2019-01-30] MEDS: POTASSIUM CHLORIDE 10 MEQ TABCR PO SCH (08:05)
[2019-01-30] MEDS: predniSONE 50 MG TAB PO SCH (08:05)
[2019-01-30] MEDS: APIXABAN 5 MG TABLET PO SCH (08:05)
[2019-01-30 11:19] VITALS: TEMP 97.3; O2SAT 98
[2019-01-30 13:12] VITALS: BP 113/70; PULSE 114
--- NOTE | 2019-01-30 13:18 | Discharge Summary ---
Date of Service January 30, 2019 Admission HPI Per Admitting Provider 68 y/o male with RUL Lung CA 2009, recurrence 2012 in the [facility] s/p resection/chemo/radiation, CAD [place] x 2 2008, HTN, Hyperlipidemia, COPD (on rescue inhaler, follows Jayson Moran), former smoker, home O2 dependent - here as transfer from [facility] due to acute shortness of breath. Pt reports steady decline in breathing ability and appetite since starting chemotherapy, is dependent on 2L O2 at home normally, but began feeling more short of breath than normal since yesterday. Noted his O2 sats remained in the high 80s, they are normally 89, but today they were in the low 80s which prompted ivet to see his PCP, who sent him to the ED. He says that in the ED at [place] they gave him lasix, breathing treatment, and repleted magnesium. He reports he feels more comfortable currently, and his breathing is easier. Does note wheezing and cough. Denies fevers although never checked his temperature. Endorses chills, and dyspnea. Denies chest pain, abdominal pain, constipation/diarrhea, weakness, syncope, dysphagia or PULLIAM. SH: lives at home with mom and sister. Former smoker. No Etoh/drug use. Notes he does have an active POLST form - does not desire heroic measures but agrees to antibiotics if it meant more comfort and ability to remain at home. Principal Diagnosis Pneumonitis Discharge Exam Constitutional WD/WN, vitals as above Eyes PERRL, conjunctivae normal, anicteric sclerae ENMT external ear and nose normal, oropharynx normal Neck trachea midline, no thyromegaly Respiratory normal respiratory effort and + audible wheezes; no respiratory distress Auscultation: + diminished lung sounds; no crackles and no rales Cardiovascular Rate/Rhythm: regular rhythm and + tachycardic Heart Sounds: normal S1 and normal S2; no murmur Extremities: normal capillary refill; no edema Gastrointestinal (Abdomen) normal bowel sounds, soft, nontender, no hepatosplenomegaly Musculoskeletal no cyanosis or clubbing, extremities motor strength 5/5 Skin no rashes, warm and dry Neurologic patellar DTR's 2+ bilat, sensation intact and PERRL, EOMI, accommodation nl, no face palsy, no dysarthria Psychiatric A+Ox3, euthymic affect Lymphatic no cervical or axillary lymphadenopathy Discharge Data Allergies Allergy/AdvReac Type Severity Reaction Status Date / Time No Known Allergies Allergy Verified 01/16/19 09:03 Consultations 01/25/19 22:38 Consult Pulmonology Routine 01/25/19 22:42 Consult Case Management - Discharge Planning Routine 01/26/19 14:14 Burn CD for patient Routine 01/27/19 07:46 Consult Palliative Care Routine Hospital Course (1) Pneumonitis: likely due to radiation will treat with Prednisone 50mg daily, prolonged course with very slow taper breathing a little better each day on discharge to hospice will be on Prednisone 50mg daily x 14 days, then 40mg daily x 14 days could continue to taper by 10mg every 2 weeks, however, if breathing gets worse with taper then increase Prednisone (2) Pneumonia: CXR with bilateral lower lobe infiltrates, small effusions CT chest with some changes in lower lobes, could also be consistent with pneumonitis after radiation completed 5 days of antibiotics, initially Rocephin/Zithromax IV, converted to Cefdinir and Zithromax PO procalcitonin normal on 01/27 so he was not felt to have severe infection WBC minimally elevated when last checked, vitals stable, no signs of sepsis certainly immunocompromised with chemotherapy (3) Chronic respiratory failure with hypoxia: continue 2L NC, no increased distress or increased oxygen requirements currently hypoxia due to pneumonitis, pneumonia, COPD, lung CA use oxygen at home for comfort, palliative care started on Roxanol PRN for dyspnea sensation (4) COPD exacerbation: wheezing resolved continue Prednisone at high dose which is for pneumonitis feeling a lot better completed course of antibiotics, Duoneb (5) Shortness of breath: see above, due to COPD exacerbation and pneumonia feeling better Roxanol PRN for dyspnea on hospice (6) On home O2: Diagnosed with b/l small segmental pulmonary emboli in 07/08. On eliquis. 2L NC at baseline (7) Pancoast tumor of right lung: s/p lobectomy no further treatment planned, will go home on hospice sister making arrangements for this palliative care following plan for home hospice today hospice services arranged, has hospital bed and bedside commode renewed prescriptions for all his medications on discharge, further refills can be through hospice CT shows progression of disease both in left lower lobe and then some lymphangetic spread into right lower lobe poor prognosis, Dr. Corey recommends palliative approach (8) Peripheral vascular disease: (9) Dyslipidemia: Cont home statin (10) S/P lobectomy of lung: Sees Dr. Marrufo. (11) Paroxysmal atrial fibrillation: Currently in sinus tach rates in 100s On chronic anticoagulation with Eliquis, this has been continued Cont home coreg (12) Ischemic cardiomyopathy: Cont home Coreg as below, and furosemide 20 daily (13) HTN (hypertension): cont home coreg (14) COPD (chronic obstructive pulmonary disease): Duonebs as above in exacerbation currently (15) Depression: cont home buspar, celexa (16) Chronic pain: continue home oxycodone 10mg PO QID PRN (17) Chronic anticoagulation: cont home eliquis (18) Patient has active physician orders for life-sustaining treatment (POLST) form: Desires no heroic measures but does want antbiotics/fluids if would make him more comfortable and make it possible to return home eventually. home hospice tomorrow (19) Severe protein-calorie malnutrition: eating well, encourage more protein intake Total Time Total Time Spent Total Time Spent (In Minutes): 37 minutes Total Time Includes: Examination of the Patient, Discharge Planning, Medication Reconciliation and Other (discussed with patient's sister) Discharge Plan Discharge Items Patient Disposition: Hospice - Home Reason For Visit: ACUTE RESPRITORY FAILURE W/ HYPOXIA, LUNG CANCER Discharge Diagnosis: Advanced lung cancer Pneumonitis COPD Condition on Discharge: Good Goals: continue to treat Pneumonitis with Prednisone comfort, hospice care continue to get rest and eat Activity: Resume your previous activity Non-emergency contact: Primary Care Provider Call non-emergency contact if: you have any medication questions, your symptoms worsen, your pain is worsening and you have a fever Follow-up/Referrals: ABISAI SCHERER PA [Primary Care Provider] - Diet: Regular Addtl Attending Provider Instructions: Medications: renewed prescriptions for your prior medications sent to pharmacy - CARVEDILOL: dose increased to 12.5mg BID - MORPHINE: liquid form, take 0.25mL PO every 2 hours as needed for shortness of breath - PREDNISONE: treatment of pneumonitis, plan for 50mg daily for 14 days then 40mg daily for 14 days can titrate further after that to 30mg daily, hospice provider can write that script when needed Lung cancer with evidence of progression despite chemotherapy Dr. Corey recommends transitioning to hospice care at home CT of the chest also showed evidence of pneumonitis, treated with high dose steroids Roxanol (morphine) started to help ease dyspnea Pneumonitis: likely from prior radiation, chemotherapy will treat with prolonged course of Prednisone plan for 50mg daily for 14 days then 40mg for 14 days can continue to lower by 10mg every 2 weeks, hospice provider can write for further dosing Pneumonia: completed full course of antibiotics while here you can call Dr. Lindsey if you have any needs in the next few days, office number is [phone] Pending Studies at Discharge: No Stand-Alone Forms: My [facility] Medications and DC Order Prescriptions: New carvedilol 12.5 mg Tablet 12.5 mg PO BID 30 Days Qty: 60 RF: 2 morphine concentrate 100 mg/5 mL (20 mg/mL) Solution 5 mg PO Q2H PRN (Reason: dyspnea) Qty: 120 RF: 0 prednisone 50 mg Tablet 50 mg PO DAILY 14 Days Qty: 14 RF: 0 prednisone 20 mg tablet 40 mg PO DAILY 14 Days Qty: 28 RF: 0 oxycodone 10 mg tablet 10 mg PO QID PRN (Reason: pain) Qty: 60 RF: 0 Continued (DME) Oxygen Home Liters Per Minute See Dose Instructions .ROUTE .MEDSUPPLY Qty: 1 RF: 0 clonazepam 1 mg Tablet 1 mg PO BID 30 Days Qty: 60 RF: 0 ondansetron 8 mg Tablet,Disintegrating 8 mg PO Q8H PRN (Reason: Nausea) 30 Days Qty: 30 RF: 0 citalopram 20 mg Tablet 20 mg PO DAILY 30 Days Qty: 30 RF: 0 buspirone 7.5 mg Tablet 7.5 mg PO BID Qty: 60 RF: 0 furosemide 20 mg Tablet 20 mg PO DAILY 30 Days Qty: 30 RF: 0 mirtazapine 15 mg Tablet,Disintegrating 15 mg PO HS 30 Days Qty: 30 RF: 0 albuterol sulfate 90 mcg/actuation Hfa Aerosol Inhaler 2 puff INHALATION QID PRN (Reason: Wheezing) 30 Days Qty: 18 RF: 3 Eliquis 5 mg Tablet 5 mg PO BID 30 Days Qty: 60 RF: 0 Discontinued carvedilol [Coreg] 6.25 mg Tablet 6.25 mg PO BID RF: 0 prochlorperazine maleate 10 mg Tablet 10 mg PO Q6H PRN (Reason: Nausea) RF: 0 folic acid 1 mg Tablet 1 mg PO DAILY RF: 0 pravastatin 20 mg Tablet 20 mg PO DAILY RF: 0 oxycodone 5 mg Tablet 10 mg PO QID PRN (Reason: Pain) RF: 0 Discharge Orders: Discharge Order (Routine); Ordered 01/30/19 Ordered By: Denilson Lindsey Admission Data Admit Date/Time: 01/25/19 21:28 Attending Provider: Denilson Lindsey Admit Provider: Matias Adams Primary Care Provider: ABISAI SCHERER Other Providers: Nhan Yepez ; Lety Child ; [facility] Other Interventions: Discharge Summary Assessment (RN) Last Done: 01/30/19 13:10 DC Date/Time DO NOT enter until pt leaves facility: 01/30/19 13:57
== END 2019-01-30 13:57 | disposition hospice, home (50) | DRG 205 ==
LOC: SUATTDRO 21:28 → 2E 21:28 → 4W 01-26 08:48